=== PATIENT | female | born 1990 | race Caucasian/White ===

== ENCOUNTER → 2024-01-09 | Outpatient (CLI) | payer OTHER, SELFPAY ==
[2024-01-09 15:40] LABS: Estradiol 30.6 pg/mL; Follicle Stimulating Hormone 4.9 mIU/mL; Prolactin 6.8 ng/mL
[2024-01-13 07:07] LABS: HPV APTIMA, High Risk Negative (Negative)
[2024-01-13 18:07] LABS: Testosterone Free 1.8 pg/mL (0.0-4.2)
== END | disposition home or self-care (01) ==
PROVIDERS: Referring Provider Nurse Practitioner Women's Health; Visit Provider Nurse Practitioner Women's Health
DX: Z12.4 Encounter for screening for malignant neoplasm of cervix (principal); N91.5 Oligomenorrhea, unspecified
CPT/HCPCS: 82627; 82670; 83001; 84146; 84402; 87624; 88175; 82626; G0145

== ENCOUNTER → 2024-02-15 | Outpatient (CLI) | payer OTHER, SELFPAY ==
[2024-02-15 15:27] LABS: Absolute Lymphocyte Count 2.74 X10^3/uL (0.83-4.51); Absolute Neutrophil Count 5.2 X10^3/uL (2.0-7.7); Basophil# 0.02 X10^3/uL; Basophil% 0.2 % (0-1); Eosinophil# 0.09 X10^3/uL; Eosinophils% 1.1 % (0-5); Hematocrit 43.4 % (37-47); Hemoglobin 14.4 g/dL (12.0-15.0); Lymphocyte # 2.74 X10^3/ul (0.83-4.51); Lymphocyte % 32.1 % (19-41); Mean Corp Hgb Conc 33.2 g/dL (32-36); Mean Corpuscular Hgb 28.2 pg (27.0-32.0); Mean Corpuscular Volume 85.1 fL (81-99); Mean Platelet Vol. 11.1 fl (6.2-12.0); Monocyte# 0.44 X10^3/uL; Monocyte% 5.2 % (0-10); NRBC Flagged by Analyzer 0 % (0-5); Neutrophil # 5.22 X10^3/uL (2.7-7.7); Neutrophil % 61.2 % (47-70); Platelet Count 269 K/mm3 (150-450); RBC Distribution Width CV 12.9 % (11.6-14.6); White Blood Count 8.5 K/mm3 (4.4-11.0)
[2024-02-15 15:56] LABS: Vitamin D,25 Hydroxy 57.9 ng/mL
[2024-02-15 16:04] LABS: Hemoglobin A1c 5.4 % (3.8-5.6)
[2024-02-15 16:18] LABS: ALB/GLOB Ratio 0.9 RATIO (0.9-2.4); AST(SGOT) 18 U/L (15-37); Alanine Aminotransfer ALT/SGPT 37 U/L (13-56); Albumin, Serum 3.8 g/dL (3.2-5.0); Alkaline Phosphatase 73 U/L (45-117); Anion Gap 7 (5-15); BUN 11 mg/dL (7-18); BUN/Creat Ratio 14.1 RATIO (10-20); Calcium,Total 9.9 mg/dL (8.5-10.1); Chloride 101 mmol/L (98-107); Creatinine, Serum 0.78 mg/dL (0.55-1.02); EST Glomerular Filtration Rate 91 mL/min (>60); Est Glom Filt Rate - Afr Amer 110 mL/min (>60); Globulin 4.1 g/dL (2.2-4.2); Glucose 89 mg/dL (74-106); Potassium 3.8 mmol/L (3.5-5.1); Protein, Total 7.9 g/dL (6.4-8.2); Sodium Level 137 mmol/L (136-145); Thyroid Stim Hormone (TSH) 0.45 uIU/mL (0.358-3.74)
== END | disposition home or self-care (01) ==
LOC: MTLAB 12:40
PROVIDERS: PCP Family Medicine; Referring Provider Family Medicine; Visit Provider Family Medicine
DX: R00.2 Palpitations (principal); Z86.32 Personal history of gestational diabetes; E05.90 Thyrotoxicosis, unspecified without thyrotoxic crisis or storm
CPT/HCPCS: 36415; 80053; 82306; 83036; 84439; 84443; 85025

== ENCOUNTER → 2024-05-23 | Outpatient (CLI) | payer OTHER, SELFPAY ==
[2024-05-23 10:37] LABS: ALB/GLOB Ratio 0.8 RATIO (0.9-2.4); AST(SGOT) 20 U/L (15-37); Alanine Aminotransfer ALT/SGPT 32 U/L (13-56); Albumin, Serum 3.4 g/dL (3.2-5.0); Alkaline Phosphatase 89 U/L (45-117); Anion Gap 4 (5-15); BUN 14 mg/dL (7-18); BUN/Creat Ratio 16.5 RATIO (10-20); Calcium,Total 8.8 mg/dL (8.5-10.1); Chloride 105 mmol/L (98-107); Creatinine, Serum 0.85 mg/dL (0.55-1.02); EST Glomerular Filtration Rate 82 mL/min (>60); Est Glom Filt Rate - Afr Amer 99 mL/min (>60); Globulin 4.3 g/dL (2.2-4.2); Glucose 103 mg/dL (74-106); Potassium 3.9 mmol/L (3.5-5.1); Protein, Total 7.7 g/dL (6.4-8.2); Sodium Level 138 mmol/L (136-145); Thyroid Stim Hormone (TSH) 0.49 uIU/mL (0.358-3.74)
== END | disposition home or self-care (01) ==
LOC: PAVLAB 09:41
PROVIDERS: PCP Family Medicine; Referring Provider Nurse Practitioner Adult Health; Visit Provider Nurse Practitioner Adult Health
DX: E05.20 Thyrotoxicosis with toxic multinodular goiter without thyrotoxic crisis or storm (principal); E55.9 Vitamin D deficiency, unspecified
CPT/HCPCS: 36415; 80053; 84443

== ENCOUNTER → 2024-05-29 | Outpatient (CLI) | payer OTHER, SELFPAY ==
[2024-05-29 07:11] LABS: ALB/GLOB Ratio 0.9 RATIO (0.9-2.4); AST(SGOT) 16 U/L (15-37); Alanine Aminotransfer ALT/SGPT 30 U/L (13-56); Albumin, Serum 3.5 g/dL (3.2-5.0); Alkaline Phosphatase 78 U/L (45-117); Anion Gap 5 (5-15); BUN 13 mg/dL (7-18); BUN/Creat Ratio 15.9 RATIO (10-20); Chloride 104 mmol/L (98-107); Creatinine, Serum 0.82 mg/dL (0.55-1.02); EST Glomerular Filtration Rate 86 mL/min (>60); Est Glom Filt Rate - Afr Amer 104 mL/min (>60); Globulin 3.8 g/dL (2.2-4.2); Glucose 107 mg/dL (74-106); Potassium 3.5 mmol/L (3.5-5.1); Protein, Total 7.3 g/dL (6.4-8.2); Sodium Level 138 mmol/L (136-145)
== END | disposition home or self-care (01) ==
LOC: LAB 06:47
PROVIDERS: PCP Family Medicine; Referring Provider Physician Assistant Medical; Visit Provider Physician Assistant Medical
DX: E05.20 Thyrotoxicosis with toxic multinodular goiter without thyrotoxic crisis or storm (principal)
CPT/HCPCS: 36415; 80053

== ENCOUNTER → 2024-08-28 | Outpatient (CLI) | payer OTHER, SELFPAY ==
[2024-08-28 10:52] LABS: ALB/GLOB Ratio 0.9 RATIO (0.9-2.4); AST(SGOT) 18 U/L (15-37); Alanine Aminotransfer ALT/SGPT 32 U/L (13-56); Albumin, Serum 3.5 g/dL (3.2-5.0); Alkaline Phosphatase 93 U/L (45-117); Anion Gap 6 (5-15); BUN 10 mg/dL (7-18); BUN/Creat Ratio 13.4 RATIO (10-20); Calcium,Total 9.2 mg/dL (8.5-10.1); Chloride 104 mmol/L (98-107); Cholesterol 213 mg/dL (200); Creatinine, Serum 0.75 mg/dL (0.55-1.02); EST Glomerular Filtration Rate 95 mL/min (>60); Est Glom Filt Rate - Afr Amer 115 mL/min (>60); Glucose 100 mg/dL (74-106); High Density Lipoprotein 53 mg/dL; Potassium 3.7 mmol/L (3.5-5.1); Protein, Total 7.5 g/dL (6.4-8.2); Sodium Level 139 mmol/L (136-145); Thyroid Stim Hormone (TSH) 0.719 uIU/mL (0.358-3.740); Triglycerides 251 mg/dL; Very Low Density Lipoprotein 50 mg/dL (5-40)
== END | disposition home or self-care (01) ==
LOC: LAB 09:58
PROVIDERS: PCP Family Medicine; Referring Provider Internal Medicine Endocrinology, Diabetes & Metabolism; Visit Provider Internal Medicine Endocrinology, Diabetes & Metabolism
DX: E05.20 Thyrotoxicosis with toxic multinodular goiter without thyrotoxic crisis or storm (principal); E78.2 Mixed hyperlipidemia
CPT/HCPCS: 36415; 80053; 80061; 84443

== ENCOUNTER → 2024-08-29 | Outpatient (CLI) | payer OTHER, SELFPAY ==
--- NOTE | 2024-08-29 15:58 | RAD_ITS ---
STUDY: X-RAY CHEST REASON FOR EXAM: Female, 34 years old. COUGH TECHNIQUE: PA and lateral COMPARISON: None. FINDINGS: The lungs are clear and expanded. There is no demonstrated pleural abnormality. Normal size heart. Normal mediastinum and valeri. Normal visualized pulmonary arteries. Normal visualized aortic arch and descending thoracic aorta. Normal visualized thoracic spine. Normal visualized ribs, clavicles, and shoulders. There is no demonstrated abnormality of the visualized soft tissue structures of the upper abdomen. RAD/Chest PA and Lateral IMPRESSION: Normal x-ray examination of the chest. Electronically Signed: Shine Hernandez MD at 16:21 EDT ,
== END | disposition home or self-care (01) ==
LOC: MTRAD 15:56
PROVIDERS: PCP Family Medicine; Referring Provider Nurse Practitioner Family; Visit Provider Nurse Practitioner Family
DX: R05.1 Acute cough (principal); M54.9 Dorsalgia, unspecified
CPT/HCPCS: 71046

== ENCOUNTER → 2024-12-25 | Outpatient (CLI) | payer OTHER, SELFPAY ==
[2024-12-25 08:00] LABS: ALB/GLOB Ratio 1.4 RATIO (0.9-2.4); AST(SGOT) 24 U/L (<=31); Alanine Aminotransfer ALT/SGPT 28 U/L (<=34); Albumin, Serum 4.2 g/dL (3.5-5.0); Alkaline Phosphatase 86 U/L (35-104); Anion Gap 11 (5-15); BUN 10 mg/dL (4-19); BUN/Creat Ratio 14.1 RATIO (10-20); Calcium 9.3 mg/dL (7.6-11.0); Carbon Dioxide 25.5 mmol/L (22.0-29.0); Chloride 101 mmol/L (96-108); Creatinine, Serum 0.7 mg/dL (0.6-1.0); EST Glomerular Filtration Rate 114 (>60); Glucose 102 mg/dL (70-99); Potassium 3.8 mmol/L (3.3-5.1); Protein, Total 7.2 g/dL (5.9-8.4); Sodium Level 137 mmol/L (133-145); Total Bilirubin 0.24 mg/dL (0.00-1.30); Vitamin D,25 Hydroxy 60.2 ng/mL (30-100)
== END | disposition home or self-care (01) ==
LOC: LAB 06:52
PROVIDERS: PCP Family Medicine; Referring Provider Internal Medicine Endocrinology, Diabetes & Metabolism; Visit Provider Internal Medicine Endocrinology, Diabetes & Metabolism
DX: E05.20 Thyrotoxicosis with toxic multinodular goiter without thyrotoxic crisis or storm (principal); E55.9 Vitamin D deficiency, unspecified
CPT/HCPCS: 36415; 80053; 82306; 84443

== ENCOUNTER → 2025-03-25 | Outpatient (CLI) | payer OTHER, SELFPAY ==
[2025-03-25 13:20] LABS: ALB/GLOB Ratio 1.3 RATIO (0.9-2.4); AST(SGOT) 22 U/L (<=31); Alanine Aminotransfer ALT/SGPT 24 U/L (<=34); Albumin, Serum 4.4 g/dL (3.5-5.0); Alkaline Phosphatase 98 U/L (35-104); Anion Gap 11 (5-15); BUN 13 mg/dL (4-19); BUN/Creat Ratio 19.1 RATIO (10-20); Calcium,Total 9.6 mg/dL (7.6-11.0); Carbon Dioxide 25.9 mmol/L (21.0-32.0); Chloride 101 mmol/L (98-108); Creatinine, Serum 0.69 mg/dL (0.70-1.20); EST Glomerular Filtration Rate 117 (>60); Globulin 3.3 g/dL (2.2-4.2); Glucose 98 mg/dL (70-99); Protein, Total 7.6 g/dL (5.9-8.4); Sodium Level 138 mmol/L (133-145); Thyroid Stim Hormone (TSH) 0.582 uIU/mL (0.300-4.200); Total Bilirubin 0.34 mg/dL (0.00-1.30)
== END | disposition home or self-care (01) ==
LOC: LAB 10:27
PROVIDERS: PCP Family Medicine; Referring Provider Internal Medicine Endocrinology, Diabetes & Metabolism; Visit Provider Internal Medicine Endocrinology, Diabetes & Metabolism
DX: E05.20 Thyrotoxicosis with toxic multinodular goiter without thyrotoxic crisis or storm (principal)
CPT/HCPCS: 36415; 80053; 84443

== ENCOUNTER → 2025-05-07 | Outpatient (CLI) | payer OTHER, SELFPAY ==
[2025-05-07 12:23] LABS: AST(SGOT) 23 U/L (<=31); Alanine Aminotransfer ALT/SGPT 27 U/L (<=34); Albumin, Serum 4.3 g/dL (3.5-5.0); Alkaline Phosphatase 93 U/L (35-104); Anion Gap 11 (5-15); BUN 14 mg/dL (4-19); BUN/Creat Ratio 17.2 RATIO (10-20); Calcium,Total 9.6 mg/dL (7.6-11.0); Carbon Dioxide 26.5 mmol/L (21.0-32.0); Chloride 101 mmol/L (98-108); Free T3 3.1 pg/mL (2.18-3.98); Globulin 3.2 g/dL (2.2-4.2); Glucose 91 mg/dL (70-99); Potassium 3.9 mmol/L (3.3-5.1)
--- OUTSIDE RECORDS SUMMARY | 2025-05-07 19:52 | XMS RPT_ITS | CCD ---
Author Organization [facility] Care Team Providers Care Elephant Tamer Name Role Phone Unavailable Primary Care Provider Unavailadela Darden MANAGED CARE MANAGER, MANAGED CARE MANAGERMario Flores Attending Provider Monae TIWARI, Patience Primary Care Provider Ashleigh ROSE, Dr. Farnsworth Attending Provider Dr. Javad Sotelo DO Referring Provider Monae, Chalon Primary Care Unavailable Bear MANAGED CARE MANAGER, Patti Attending Unavailable Bear RODRIGUEZ, Patti Referring Unavailable Terra Myers Attending Unavailadela Licona, Chalon Primary Care Unavailable Monae, Chalon Primary Care Unavailable Javad Sotelo Attending Unavailable Javad Sotelo Referring Unavailable Monae, Chalon Primary Care Unavailable Javad Sotelo Attending Unavailable Javad Sotelo Referring Unavailable Zayda Ramirez Referring Unavailable Zayda Ramirez Attending Unavailable Monae, Chalon Primary Care Unavailable Monae, Chalon Primary Care Unavailable Javad Sotelo Attending Unavailable Javad Sotelo Referring Unavailable Monae, Chalon Primary Care Unavailable WU RIVERA Referring Unavailable WU RIVERA Attending Unavailable Allergies Allergy Classification Reported Allergen(s) Allergy Type Date of Onset Reaction(s) Facility (1 source) Amoxicillin / Clavulanate Drug Allergy 03-19-2019 [facility] Medications Current Medications Medication Drug Class(es) Dates Sig (Normalized) Sig (Original) medroxyPROGESTERone acetate 10 mg oral tablet (4 sources) Progestin Start: 4 Medroxyprogesterone 10 mg tablet Active 10 mg PO daily 08 07January 09, 2024 12:00am Take daily X 10 days to induce menses. Repeat every 3 months if no spontaneous menses methIMAzole 5 mg oral tablet (4 sources) Thyroid Hormone Synthesis Inhibitor Start: take 2.5 mg by mouth four times weekly Methimazole 5 mg tablet Active 2.5 mg PO 4 times per week January 09, 2024 12:00am Start: 01-09-2024 take 2.5 mg by mouth four times weekly Methimazole Active 2.5 MG PO 4 times per week January 09, 2024 12:00am Problems Active Problems Problem Classification Problem Date Documented Date Episodic/Chronic Menstrual disorders (6 sources) Oligomenorrhea; Translations: [Oligomenorrhea, unspecified] 01-09-2024 Chronic Comment on above: labs. 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 Unclassified (1 source) Patient encounter status; Translations: [Encounter for induction of labor] Onset: 03-19-2019 03-19-2019 Unclassified (1 source) Acute cough; Translations: [Acute cough] Onset: 09-19-2024 Past or Other Problems Problem Classification Problem Date Documented Da te Episodic/Chronic Diabetes or abnormal glucose tolerance complicating ; childbirth; or the puerperium (1 source) Gestational diabetes mellitus complicating ; Translations: [Gestational diabetes mellitus (GDM) affecting second ] Onset: 03-19-2019 03-19-2019 Episodic Residual codes; unclassified (1 source) Gestation period, 40 weeks; Translations: [40 weeks gestation of ] Onset: 03-19-2019 03-19-2019 Episodic Results Test Name Value Interpretation Reference Range Facility Anion gap in Serum or Plasma Ordered By: Javad Sotelo on 03-25-2025 Anion gap [Moles/Vol] 11 mmol/L 5-15 [facility] BUN/creatinine ratioOrdered By: Javad Sotelo on 03-25-2025 Urea nitrogen/Creatinine [Mass ratio] 19.1 mg/mg 10-20 [facility] Bilirubin, totalOrdered By: Javad Sotelo on 03-25-2025 Bilirubin [Mass/Vol] 0.34 mg/dL 0.00-1.30 [facility] Carbon dioxide, total [Moles /volume] in Central venous bloodOrdered By: Javad Sotelo on 03-25-2025 CO2 [Moles/Vol] 25.9 mmol/L 21.0-32.0 [facility] Chloride assayOrdered By: Stew Sotelo on 03-25-2025 Chloride [Moles/Vol] 101 mmol/L 98-108 [facility] Comprehensive Metabolic Prof ilon 03-25-2025 Albumin [Mass/Vol] 4.4 g/dL Normal 3.5-5.0 [facility] Comment on above: Performed By: #### L 500.4050, L501.9520 #### [facility] [address] [place], [address] Albumin/Globulin [Mass ratio] 1.3 {ratio} Normal 0.9-2.4 [facility] Comment on above: Performed By: #### L 500.4050, L501.9520 #### [facility] [address] [place], [address] ALK PHOS 98 U/L Normal 35-104 [facility] Comment on above: Performed By: #### L 500.4050, L501.9520 #### [facility] [address] [place], [address] ALT [Catalytic activity/Vol] 24 U/L Normal <=34 [facility] Comment on above: Performed By: #### L 500.4050, [id number] #### [facility] [address] [place], [address] AST [Catalytic activity/Vol] 22 U/L Normal <=31 [facility] Comment on above: Performed By: #### L 500.4050, [id number] #### [facility] [address] [place], [address] Bilirubin [Mass/Vol] 0.34 mg/dL Normal 0.00-1.30 [facility] Comment on above: Performed By: #### L 500.4050, [id number] #### [facility] [address] [place], [address] BUN/CRE 19.1 RATIO Normal 10-20 [facility] Comment on above: Performed By: #### L 500.4050, [id number] #### [facility] [address] [place], [address] Calcium [Mass/Vol] 9.6 mg/dL Normal 7.6-11.0 [facility] Comment on above: Performed By: #### L 500.4050, [id number] #### [facility] [address] [place], [address] Chloride [Moles/Vol] 101 mmol/L Normal 98-108 [facility] Comment on above: Performed By: #### L 500.4050, [id number] #### [facility] [address] [place], [address] CO2 [Moles/Vol] 25.9 mmol/L Normal 21.0-32.0 [facility] Comment on above: Performed By: #### L 500.4050, [id number] #### [facility] [address] [place], [address] Creatinine [Mass/Vol] 0.69 mg/dL Low 0.70-1.20 [facility] Comment on above: Performed By: #### L 500.4050, [id number] #### [facility] [address] [place], [address] GAP 11 Normal 5-15 [facility] Comment on above: Performed By: #### L 500.4050, [id number] #### [facility] [address] [place], [address] GFR/1.73 sq M.predicted among non-blacks MDRD (S/P/Bld) [Vol rate/Area] 117 mL/min/{1.73_m2} Normal >60 [facility] Comment on above: Result Comment: mL/m in/1.73m2 CKD-EPI Creatinine Equation (2020) Performed By: #### L 500.4050, L501.9520 #### [facility] [address] [place], [address] Globulin (S) [Mass/Vol] 3.3 g/dL Normal 2.2-4.2 [facility] Comment on above: Performed By: #### L 500.4050, [id number] #### [facility] [address] [place], [address] Glucose [Mass/Vol] 98 mg/dL Normal 70-99 [facility] Comment on above: Performed By: #### L 500.4050, [id number] #### [facility] [address] [place], [address] Potassium [Moles/Vol] 4.0 mmol/L Normal 3.3-5.1 [facility] Comment on above: Performed By: #### L 500.4050, [id number] #### [facility] [address] [place], [address] Sodium [Moles/Vol] 138 mmol/L Normal 133-145 [facility] Comment on above: Performed By: #### L 500.4050, [id number] #### [facility] [address] [place], [address] T PROT 7.6 g/dL Normal 5.9-8.4 [facility] Comment on above: Performed By: #### L 500.4050, [id number] #### [facility] [address] [place], [place], [address] Urea nitrogen [Mass/Vol] 13 mg/dL Normal 4-19 [facility] Comment on above: Performed By: #### L 500.4050, [id number] #### [facility] [address] [place], [place], [address] Glomerular filtration rate ( GFR) estimation/1.73 sq m using serum, plasma, or whole bOrdered By: Javad Sotelo on 03-25-2025 GFR/1.73 sq M.predicted among non-blacks MDRD (S/P/Bld) [Vol rate/Area] 117 mL/min/{1.73_m2} >60 [facility] Comment on above: mL/min/1.73m2 CKD-EP I Creatinine Equation (2020) Laboratory - Chemistry and C hemistry - challengeOrdered By: Javad Sotelo on 03-25-2025 AST [Catalytic activity/Vol] 22 U/L <32 [facility] Potassium measurement (mass/ volume)Ordered By: Javad Sotelo on 03-25-2025 Potassium (Unsp spec) [Mass/Vol] 4.0 mmol/L 3.3-5.1 [facility] Serum creatinine measurement (mass/volume)Ordered By: Javad Sotelo on 03-25-2025 Creatinine [Mass/Vol] 0.69 mg/dL Low 0.70-1.20 [facility] Serum globulin measurementOr dered By: Javad Sotelo on 03-25-2025 Globulin (S) [Mass/Vol] 3.3 g/dL 2.2-4.2 [facility] Serum glucose measurement (m ass/volume)Ordered By: Javad Sotelo on 03-25-2025 Glucose [Mass/Vol] 98 mg/dL 70-99 [facility] Serum or plasma alanine warner otransferase (ALT) measurementOrdered By: Javad Sotelo on 03-25-2025 ALT [Catalytic activity/Vol] 24 U/L <35 [facility] Serum or plasma albumin david urement (mass/volume)Ordered By: Javad Sotelo on 03-25-2025 Albumin [Mass/Vol] 4.4 g/dL 3.5-5.0 [facility] Serum or plasma albumin/glob ulin mass ratioOrdered By: Javad Sotelo on 03-25-2025 Albumin/Globulin [Mass ratio] 1.3 {ratio} 0.9-2.4 [facility] Serum or plasma alkaline nancy sphatase measurementOrdered By: Javad Sotelo on 03-25-2025 ALP [Catalytic activity/Vol] 98 U/L 35-104 [facility] Serum or plasma calcium david urement (mass/volume)Ordered By: Javad Sotelo on 03-25-2025 Calcium [Mass/Vol] 9.6 mg/dL 7.6-11.0 [facility] Serum or plasma urea nitroge n measurement (mass/volume)Ordered By: Javad Sotelo on 03-25-2025 Urea nitrogen [Mass/Vol] 13 mg/dL 4-19 [facility] Sodium levelOrdered By: Breann Sotelo on 03-25-2025 Sodium [Moles/Vol] 138 mmol/L 133-145 [facility] TSH DL <= 0.005 mIU/L QnOrde red By: Javad Sotelo on 03-25-2025 TSH Qn 0.582 uIU/mL 0.300-4.200 [facility] Thyroid Stim Hormone (TSH)on 03-25-2025 TSH 0.582 uIU/mL Normal 0.300-4.200 [facility] Comment on above: Performed By: #### L 500.4050, L501.9520 #### [facility] [address] [place], [place] [address], [address] Total proteinOrdered By: Deny Sotelo on 03-25-2025 Protein [Mass/Vol] 7.6 g/dL 5.9-8.4 [facility] BUN/creatinine ratioOrdered By: Javad Sotelo on 12-25-2024 Urea nitrogen/Creatinine [Mass ratio] 14.1 mg/mg 10-20 [facility] Bilirubin, totalOrdered By: Javad Sotelo on 12-25-2024 Bilirubin [Mass/Vol] 0.24 mg/dL Normal 0.00-1.30 [facility] Comment on above: Performed By: #### L 500.4050, L501.9520, L506.1001 #### [facility] [address], [address] Carbon dioxide measurementOr dered By: Javad Sotelo on 12-25-2024 CO2 [Moles/Vol] 25.5 mmol/L Normal 22.0-29.0 [facility] Comment on above: Performed By: #### L 500.4050, L501.9520, L506.1001 #### [facility] [address] [place], [address] Chloride measurementOrdered By: Javad Sotelo on 12-25-2024 Chloride [Moles/Vol] 101 mmol/L Normal 96-108 [facility] Comment on above: Performed By: #### L 500.4050, L501.9520, L506.1001 #### [facility] [address] [place], [address] Comprehensive Metabolic Prof ilon 12-25-2024 ALK PHOS 86 U/L Normal 35-104 [facility] Comment on above: Performed By: #### L 500.4050, L501.9520, L506.1001 #### [facility] [address] [place], [address] BUN/CRE 14.1 RATIO Normal 10-20 [facility] Comment on above: Performed By: #### L 500.4050, L501.9520, L506.1001 #### [facility] [address] [place], [address] T PROT 7.2 g/dL Normal 5.9-8.4 [facility] Comment on above: Performed By: #### L 500.4050, L501.9520, L506.1001 #### [facility] [address] [place], [address] Comprehensive Metabolic Prof ilOrdered By: Javad Sotelo on 12-25-2024 AST [Catalytic activity/Vol] 24 U/L Normal <=31 [facility] Comment on above: Performed By: #### L 500.4050, L501.9520, L506.1001 #### [facility] [address] [place], [address] GFR/1.73 sq M.predicted ronal g non-blacks MDRD (S/P/Bld) [Vol rate/Area]Ordered By: Javad Sotelo on 12-25-2024 Estimated GFR (MDRD) Non-Af Amer 114 >60 [facility] Comment on above: mL/min/1.73m2 CKD-EP I Creatinine Equation (2020) Glomerular filtration rate ( GFR) estimation/1.73 sq m using serum, plasma, or whole bOrdered By: Javad Sotelo on 12-25-2024 GFR/1.73 sq M.predicted among non-blacks MDRD (S/P/Bld) [Vol rate/Area] 114 mL/min/{1.73_m2} Normal >60 [facility] Comment on above: mL/min/1.73m2 CKD-EP I Creatinine Equation (2020) Result Comment: mL/m in/1.73m2 CKD-EPI Creatinine Equation (2020) Performed By: #### L 500.4050, L501.9520, L506.1001 #### [facility] [address] [place], [address] L506.1001on 12-25-2024 Vitamin D 25-OH 60.2 ng/mL Normal 30-100 [facility] Comment on above: Result Comment: Mira min D Status Deficiency: <20 ng/mL (50nmol/L) Insufficiency: 20-30 ng/mL (50-75 nmol/L) Sufficiency: 30-100 ng/mL (75-250 nmol/L) Toxicity: >100 ng/mL (>250 nmol/L) Performed By: #### L 500.4050, L501.9520 #### [facility] [address] [place], [address] No Panel InformationOrdered By: Javad Sotelo on 12-25-2024 Vitamin D 25-Hydroxy 60.2 ng/mL 30-100 [facility] Comment on above: Vitamin D StatusDefi ciency: <20 ng/mL (50nmol/L)Insufficiency: 20-30 ng/mL (50-75 nmol/L)Sufficiency: 30-100 ng/mL (75-250 nmol/L)Toxicity: >100 ng/mL (>250 nmol/L) Serum globulin measurementOr dered By: Javad Sotelo on 12-25-2024 Globulin (S) [Mass/Vol] 3.0 g/dL Normal 2.2-4.2 [facility] Comment on above: Performed By: #### L 500.4050, L501.9520, L506.1001 #### [facility] [address] [place], [address] Serum glucose measurement (m ass/volume)Ordered By: Javad Sotelo on 12-25-2024 Glucose [Mass/Vol] 102 mg/dL High 70-99 [facility] Comment on above: Performed By: #### L 500.4050, L501.9520, L506.1001 #### [facility] [address] [place], [address] Serum or plasma alanine warner otransferase (ALT) measurementOrdered By: Javad Sotelo on 12-25-2024 ALT [Catalytic activity/Vol] 28 U/L Normal <=34 [facility] Comment on above: Performed By: #### L 500.4050, L501.9520, L506.1001 #### [facility] [address] [place], [address] Serum or plasma albumin david urement (mass/volume)Ordered By: Javad Sotelo on 12-25-2024 Albumin [Mass/Vol] 4.2 g/dL Normal 3.5-5.0 [facility] Comment on above: Performed By: #### L 500.4050, L501.9520, L506.1001 #### [facility] [address] [place], [address] Serum or plasma albumin/glob ulin mass ratioOrdered By: Javad Ashleigh on 12-25-2024 Albumin/Globulin [Mass ratio] 1.4 {ratio} Normal 0.9-2.4 [facility] Comment on above: Performed By: #### L 500.4050, L501.9520, L506.1001 #### [facility] [address] [place], [address] Serum or plasma alkaline nancy sphatase measurementOrdered By: Javad Sotelo on 12-25-2024 ALP [Catalytic activity/Vol] 86 U/L 35-104 [facility] Serum or plasma anion gap de termination (moles/volume)Ordered By: Javadalonso Sotelo on 12-25-2024 Anion gap [Moles/Vol] 11 mmol/L Normal 5-15 [facility] Comment on above: Performed By: #### L 500.4050, L501.9520, L506.1001 #### [facility] [address] [place], [address] Serum or plasma calcium david urement (mass/volume)Ordered By: Javad Sotelo on 12-25-2024 Calcium [Mass/Vol] 9.3 mg/dL Normal 7.6-11.0 [facility] Comment on above: Performed By: #### L 500.4050, L501.9520, L506.1001 #### [facility] [address] [place], [address] Serum or plasma creatinine m easurement (moles/volume)Ordered By: Javad Sotelo on 12-25-2024 Creatinine [Mass/Vol] 0.7 mg/dL Normal 0.6-1.0 [facility] Comment on above: Performed By: #### L 500.4050, L501.9520, L506.1001 #### [facility] [address] [place], [address] Creatinine [Moles/Vol] 0.7 mg/dL 0.6-1.0 [facility] Serum or plasma potassium me asurementOrdered By: Javad Sotelo on 12-25-2024 Potassium [Moles/Vol] 3.8 mmol/L Normal 3.3-5.1 [facility] Comment on above: Performed By: #### L 500.4050, L501.9520, L506.1001 #### [facility] [address] [place], [address] Serum or plasma sodium measu rement (moles/volume)Ordered By: Javad Sotelo on 12-25-2024 Sodium [Moles/Vol] 137 mmol/L Normal 133-145 [facility] Comment on above: Performed By: #### L 500.4050, L501.9520, L506.1001 #### [facility] [address] [place], [address] Serum or plasma urea nitroge n measurement (mass/volume)Ordered By: Javad Sotelo on 12-25-2024 Urea nitrogen [Mass/Vol] 10 mg/dL Normal 4-19 [facility] Comment on above: Performed By: #### L 500.4050, L501.9520, L506.1001 #### [facility] [address] [place], [address] TSH DL <= 0.005 mIU/L QnOrde red By: Javad Sotelo on 12-25-2024 Thyroid Stimulating Hormone (TSH) 0.810 uIU/mL 0.300-4.200 [facility] TSH Qn 0.810 uIU/mL 0.300-4.200 [facility] Thyroid Stim Hormone (TSH)on 12-25-2024 TSH 0.810 uIU/mL Normal 0.300-4.200 [facility] Comment on above: Performed By: #### L 500.4050, L501.9520 #### [facility] [address] [place], [place], [address] Total proteinOrdered By: Deny in Ashleigh on 12-25-2024 Protein [Mass/Vol] 7.2 g/dL 5.9-8.4 [facility] Chest PA and Lateralon 08-29 Chest PA and Lateral [facility] [address] [place], [place] [address] Chest PA and Lateral MR#: [id number] Acct: [id number] Name: LORE GARDNER Rep #: [id number] : 1990 F 34 From: Shine Hernandez MD PCP: Dr. Patience Licona MD Status: [facility] CLI Study: Chest PA and Lateral Date of Exam: 08/29/24 Exam# [id number] Ordering Dr: Zayda Ramirez MANAGED CARE MANAGER- C [id number] STUDY: X-RAY CHEST REASON FOR EXAM: Female, 34 years old. COUGH TECHNIQUE: PA and lateral COMPARISON: None. FINDINGS: The lungs are clear and expanded. There is no demonstrated pleural abnormality. Normal size heart. Normal mediastinum and valeri. Normal visualized pulmonary arteries. Normal visualized aortic arch and descending thoracic aorta. Normal visualized thoracic spine. Normal visualized ribs, clavicles, and shoulders. There is no demonstrated abnormality of the visualized soft tissue structures of the upper abdomen. RAD/Chest PA and Lateral IMPRESSION: Normal x-ray examination of the chest. Electronically Signed: Shine Hernandez MD at 16:21 EDT , CC: LISA Ramirez; Dr. Patience Licona MD Mechanical Integrity Specialist: Signed Normal [facility] Comprehensive Metabolic Prof ilon 08-28-2024 Albumin [Mass/Vol] 3.5 g/dL Normal 3.2-5.0 [facility] Comment on above: Performed By: #### L 500.4100, L500.4050, L501.9520 #### [facility] [address] [place], [address] Albumin/Globulin [Mass ratio] 0.9 {ratio} Normal 0.9-2.4 [facility] Comment on above: Performed By: #### L 500.4100, L500.4050, L501.9520 #### [facility] [address] [place], [address] ALK P 93 U/L Normal 45-117 [facility] Comment on above: Performed By: #### L 500.4100, L500.4050, L501.9520 #### [facility] [address] [place], [address] ALT [Catalytic activity/Vol] 32 U/L Normal 13-56 [facility] Comment on above: Performed By: #### L 500.4100, L500.4050, L501.9520 #### [facility] [address] [place], [address] AST [Catalytic activity/Vol] 18 U/L Normal 15-37 [facility] Comment on above: Performed By: #### L 500.4100, L500.4050, L501.9520 #### [facility] [address] [place], [address] Bilirubin [Mass/Vol] 0.40 mg/dL Normal 0.20-1.00 [facility] Comment on above: Result Comment: For patients on eltrombopag therapy, use of Dimension Dresher TBIL is not recommended. Performed By: #### L 500.4100, L500.4050, L501.9520 #### [facility] [address] [place], [address] BUN/CRE 13.4 RATIO Normal 10-20 [facility] Comment on above: Performed By: #### L 500.4100, L500.4050, L501.9520 #### [facility] [address] [place], [address] CA,Total 9.2 mg/dL Normal 8.5-10.1 [facility] Comment on above: Performed By: #### L 500.4100, L500.4050, L501.9520 #### [facility] [address] [place], [address] Chloride [Moles/Vol] 104 mmol/L Normal 98-107 [facility] Comment on above: Performed By: #### L 500.4100, L500.4050, L501.9520 #### [facility] [address] [place], [address] CO2 [Moles/Vol] 29.0 mmol/L Normal 21.0-32.0 [facility] Comment on above: Performed By: #### L 500.4100, L500.4050, L501.9520 #### [facility] [address] [place], [address] Creatinine [Mass/Vol] 0.75 mg/dL Normal 0.55-1.02 [facility] Comment on above: Result Comment: The validity of the calculated GFR GFRAA in patients over 70 years has not been determined. Clinical correlation is essential. Performed By: #### L 500.4100, L500.4050, L501.9520 #### [facility] [address] [place], [address] EST GFR - AA 115 mL/min Normal >60 [facility] Comment on above: Result Comment: Afri can Greek GFR Calc Performed By: #### L 500.4100, L500.4050, L501.9520 #### [facility] [address] [place], [address] GAP 6 Normal 5-15 [facility] Comment on above: Performed By: #### L 500.4100, L500.4050, L501.9520 #### [facility] [address] [place], [address] GFR/1.73 sq M.predicted among non-blacks MDRD (S/P/Bld) [Vol rate/Area] 95 mL/min/{1.73_m2} Normal >60 [facility] Comment on above: Result Comment: Non- GFR Calc Performed By: #### L 500.4100, L500.4050, L501.9520 #### [facility] [address] [place], [address] Globulin (S) [Mass/Vol] 4.0 g/dL Normal 2.2-4.2 [facility] Comment on above: Performed By: #### L 500.4100, L500.4050, L501.9520 #### [facility] [address] [place], [address] Glucose [Mass/Vol] 100 mg/dL Normal 74-106 [facility] Comment on above: Result Comment: Fast ing Glucose result from 100 to 125 mg/dL suggests IMPAIRED HOMEOSTASIS per A.D.A. criteria. Performed By: #### L 500.4100, L500.4050, L501.9520 #### [facility] [address] [place], [address] Potassium [Moles/Vol] 3.7 mmol/L Normal 3.5-5.1 [facility] Comment on above: Performed By: #### L 500.4100, L500.4050, L501.9520 #### [facility] [address] [place], [address] Sodium [Moles/Vol] 139 mmol/L Normal 136-145 [facility] Comment on above: Performed By: #### L 500.4100, L500.4050, [id number] #### [facility] [address] [place], [address] T PROT 7.5 g/dL Normal 6.4-8.2 [facility] Comment on above: Performed By: #### L 500.4100, [id number], [id number] #### [facility] [address] [place], [address] Urea nitrogen [Mass/Vol] 10 mg/dL Normal 7-18 [facility] Comment on above: Performed By: #### L 500.4100, L500.4050, [id number] #### [facility] [address] [place], [address] Lipid Profileon 08-28-2024 Cholesterol [Mass/Vol] 213 mg/dL High 200 [facility] Comment on above: Result Comment: <200 mg/dL Desirable 200-240 mg/dL Borderline >240 mg/dL High Risk Performed By: #### L 500.4100, L500.4050, [id number] #### [facility] [address] [place], [address] Cholesterol in HDL [Mass/Vol] 53 mg/dL Normal [facility] Comment on above: Result Comment: The drugs N-Acetylcysteine and Metamizole may falsely depress this assay. Reference Range HDL <40 mg/dL Low HDL Cholesterol HDL >or= 60 mg/dL High HDL Cholesterol Performed By: #### L 500.4100, L500.4050, [id number] #### [facility] [address] [place], [address] Cholesterol in LDL [Mass/Vol] 110 mg/dL Normal 0-130 [facility] Comment on above: Performed By: #### L 500.4100, [id number], [id number] #### [facility] [address] [place], [address] Cholesterol in VLDL [Mass/Vol] 50 mg/dL High 5-40 [facility] Comment on above: Performed By: #### L 500.4100, L500.4050, [id number] #### [facility] [address] [place], [address] Triglyceride [Mass/Vol] 251 mg/dL High [facility] Comment on above: Result Comment: The drugs N-Acetylcysteine and Metamizole may falsely depress this assay. Serum Triglycerides Reference Interval Normal <150 mg/dL Borderline high 150 - 199 mg/dL High 200 - 499 mg/dL Very High > or = 500 mg/dL Performed By: #### L 500.4100, L500.4050, [id number] #### [facility] [address] [place], [address] Thyroid Stim Hormone (TSH)on 08-28-2024 TSH 0.719 uIU/mL Normal 0.358-3.740 [facility] Comment on above: Performed By: #### L 500.4100, L500.4050, [id number] #### [facility] [address] [place], [address] Comprehensive Metabolic Prof ilon 05-29-2024 Albumin [Mass/Vol] 3.5 g/dL Normal 3.2-5.0 [facility] Comment on above: Performed By: #### L 500.4050 #### [facility] [address] [place], [address] Albumin/Globulin [Mass ratio] 0.9 {ratio} Normal 0.9-2.4 [facility] Comment on above: Performed By: #### L 500.4050 #### [facility] [address] [place], [address] ALK P 78 U/L Normal 45-117 [facility] Comment on above: Performed By: #### L 500.4050 #### [facility] [address] [place], [address] ALT [Catalytic activity/Vol] 30 U/L Normal 13-56 [facility] Comment on above: Performed By: #### L 500.4050 #### [facility] [address] [place], [address] AST [Catalytic activity/Vol] 16 U/L Normal 15-37 [facility] Comment on above: Performed By: #### L 500.4050 #### [facility] [address] [place], [address] Bilirubin [Mass/Vol] 0.20 mg/dL Normal 0.20-1.00 [facility] Comment on above: Result Comment: For patients on eltrombopag therapy, use of Dimension Dresher TBIL is not recommended. Performed By: #### L 500.4050 #### [facility] [address] [place], [address] BUN/CRE 15.9 RATIO Normal 10-20 [facility] Comment on above: Performed By: #### L [id number] #### [facility] [address] [place], [address] CA,Total 9.0 mg/dL Normal 8.5-10.1 [facility] Comment on above: Performed By: #### L 500.4050 #### [facility] [address] [place], [address] Chloride [Moles/Vol] 104 mmol/L Normal 98-107 [facility] Comment on above: Performed By: #### L 500.4050 #### [facility] [address] [place], [address] CO2 [Moles/Vol] 29.0 mmol/L Normal 21.0-32.0 [facility] Comment on above: Performed By: #### L 500.4050 #### [facility] [address] [place], [address] Creatinine [Mass/Vol] 0.82 mg/dL Normal 0.55-1.02 [facility] Comment on above: Result Comment: The validity of the calculated GFR GFRAA in patients over 70 years has not been determined. Clinical correlation is essential. Performed By: #### L 500.4050 #### [facility] [address] [place], [address] EST GFR - AA 104 mL/min Normal >60 [facility] Comment on above: Result Comment: Afri can Greek GFR Calc Performed By: #### L 500.4050 #### [facility] [address] [place], [address] GAP 5 Normal 5-15 [facility] Comment on above: Performed By: #### L 500.4050 #### [facility] [address] [place], [address] GFR/1.73 sq M.predicted among non-blacks MDRD (S/P/Bld) [Vol rate/Area] 86 mL/min/{1.73_m2} Normal >60 [facility] Comment on above: Result Comment: Non- GFR Calc Performed By: #### L 500.4050 #### [facility] [address] [place], [address] Globulin (S) [Mass/Vol] 3.8 g/dL Normal 2.2-4.2 [facility] Comment on above: Performed By: #### L 500.4050 #### [facility] [address] [place], [address] Glucose [Mass/Vol] 107 mg/dL High 74-106 [facility] Comment on above: Result Comment: Fast ing Glucose result from 100 to 125 mg/dL suggests IMPAIRED HOMEOSTASIS per A.D.A. criteria. Performed By: #### L 500.4050 #### [facility] [address] [place], [address] Potassium [Moles/Vol] 3.5 mmol/L Normal 3.5-5.1 [facility] Comment on above: Performed By: #### L [id number] #### [facility] [address] [place], [address] Sodium [Moles/Vol] 138 mmol/L Normal 136-145 [facility] Comment on above: Performed By: #### L 500.4050 #### [facility] [address] [place], [address] T PROT 7.3 g/dL Normal 6.4-8.2 [facility] Comment on above: Performed By: #### L 500.4050 #### [facility] [address] [place], [address] Urea nitrogen [Mass/Vol] 13 mg/dL Normal 7-18 [facility] Comment on above: Performed By: #### L 500.4050 #### [facility] [address] [place], [address] Comprehensive Metabolic Prof ilon 05-23-2024 Albumin [Mass/Vol] 3.4 g/dL Normal 3.2-5.0 [facility] Comment on above: Performed By: #### L 501.9520, L500.4050 #### [facility] [address] [place], [address] Albumin/Globulin [Mass ratio] 0.8 {ratio} Low 0.9-2.4 [facility] Comment on above: Performed By: #### L 501.9520, L500.4050 #### [facility] [address] [place], [address] ALK P 89 U/L Normal 45-117 [facility] Comment on above: Performed By: #### L 501.9520, L500.4050 #### [facility] [address] [place], [address] ALT [Catalytic activity/Vol] 32 U/L Normal 13-56 [facility] Comment on above: Performed By: #### L 501.9520, L500.4050 #### [facility] [address] [place], [address] AST [Catalytic activity/Vol] 20 U/L Normal 15-37 [facility] Comment on above: Performed By: #### L 501.9520, L500.4050 #### [facility] [address] [place], [address] Bilirubin [Mass/Vol] 0.40 mg/dL Normal 0.20-1.00 [facility] Comment on above: Result Comment: For patients on eltrombopag therapy, use of Dimension Dresher TBIL is not recommended. Performed By: #### L 501.9520, L500.4050 #### [facility] [address] [place], [address] BUN/CRE 16.5 RATIO Normal 10-20 [facility] Comment on above: Performed By: #### L [id number], L500.4050 #### [facility] [address] [place], [address] CA,Total 8.8 mg/dL Normal 8.5-10.1 [facility] Comment on above: Performed By: #### L [id number], L500.4050 #### [facility] [address] [place], [address] Chloride [Moles/Vol] 105 mmol/L Normal 98-107 [facility] Comment on above: Performed By: #### L 501.9520, L500.4050 #### [facility] [address] [place], [address] CO2 [Moles/Vol] 29.0 mmol/L Normal 21.0-32.0 [facility] Comment on above: Performed By: #### L 501.9520, L500.4050 #### [facility] [address] [place], [address] Creatinine [Mass/Vol] 0.85 mg/dL Normal 0.55-1.02 [facility] Comment on above: Result Comment: The validity of the calculated GFR GFRAA in patients over 70 years has not been determined. Clinical correlation is essential. Performed By: #### L 501.9520, L500.4050 #### [facility] [address] [place], [address] EST GFR - AA 99 mL/min Normal >60 [facility] Comment on above: Result Comment: Afri can Greek GFR Calc Performed By: #### L 501.9520, L500.4050 #### [facility] [address] [place], [address] GAP 4 Low 5-15 [facility] Comment on above: Performed By: #### L 501.9520, L500.4050 #### [facility] [address] [place], [address] GFR/1.73 sq M.predicted among non-blacks MDRD (S/P/Bld) [Vol rate/Area] 82 mL/min/{1.73_m2} Normal >60 [facility] Comment on above: Result Comment: Non- GFR Calc Performed By: #### L 501.9520, L500.4050 #### [facility] [address] [place], [address] Globulin (S) [Mass/Vol] 4.3 g/dL High 2.2-4.2 [facility] Comment on above: Performed By: #### L 501.9520, L500.4050 #### [facility] [address] [place], [address] Glucose [Mass/Vol] 103 mg/dL Normal 74-106 [facility] Comment on above: Result Comment: Fast ing Glucose result from 100 to 125 mg/dL suggests IMPAIRED HOMEOSTASIS per A.D.A. criteria. Performed By: #### L 501.9520, L500.4050 #### [facility] [address] [place], [address] Potassium [Moles/Vol] 3.9 mmol/L Normal 3.5-5.1 [facility] Comment on above: Performed By: #### L 501.9520, L500.4050 #### [facility] [address] [place], [address] Sodium [Moles/Vol] 138 mmol/L Normal 136-145 [facility] Comment on above: Performed By: #### L [id number], L500.4050 #### [facility] [address] [place], [address] T PROT 7.7 g/dL Normal 6.4-8.2 [facility] Comment on above: Performed By: #### L 501.9520, L500.4050 #### [facility] [address] [place], [address] Urea nitrogen [Mass/Vol] 14 mg/dL Normal 7-18 [facility] Comment on above: Performed By: #### L 501.9520, [id number] #### [facility] [address] [place], [address] Thyroid Stim Hormone (TSH)on 05-23-2024 TSH 0.49 uIU/mL Normal 0.358-3.74 [facility] Comment on above: Performed By: #### L 501.9520, L500.4050 #### [facility] [place], [address] Absolute lymphocyte countOrd ered By: [facility] on 02-15-2024 Lymphocytes Auto (Unsp spec) [#/Vol] 2.74 10*3/uL 0.83-4.51 [facility] Automated lymphocyte count a s percentage of total leukocytesOrdered By: [facility] Monae on 02-15-2024 Lymphocytes/100 WBC Auto (Unsp spec) 32.1 % 19-41 [facility] Basophil percentageOrdered B y: Chynakathleen Monae on 02-15-2024 Basophils/100 WBC (Bld) 0.2 % 0-1 [facility] Bilirubin [Mass/Vol] 0.40 mg/dL 0.20-1.00 [facility] Comment on above: For patients on eltr ombopag therapy, use of Dimension Dresher TBIL is not recommended. Chloride [Moles/Vol] 101 mmol/L 98-107 [facility] Eosinophils/100 WBC (Bld) 1.1 % 0-5 [facility] Glucose [Mass/Vol] 89 mg/dL 74-106 [facility] Hemoglobin (Bld) [Mass/Vol] 14.4 g/dL 12.0-15.0 [facility] Monocytes/100 WBC (Bld) 5.2 % 0-10 [facility] Neutrophils (Bld) [#/Vol] 5.2 10*3/uL 2.0-7.7 [facility] Neutrophils/100 WBC (Bld) 61.2 % 47-70 [facility] Potassium [Moles/Vol] 3.8 mmol/L 3.5-5.1 [facility] Protein [Mass/Vol] 7.9 g/dL 6.4-8.2 [facility] Sodium [Moles/Vol] 137 mmol/L 136-145 [facility] WBC (Bld) [#/Vol] 8.5 10*3/uL 4.4-11.0 [facility] Determination of erythrocyte mean corpuscular volume (MCV)Ordered By: Patience Licona on 02-15-2024 MCV (RBC) [Entitic vol] 85.1 fL 81-99 [facility] Erythrocyte distribution wid th ratioOrdered By: [facility] 02-[facility]-2024 Erythrocyte distribution width (RBC) [Ratio] 12.9 % 11.6-14.6 [facility] Erythrocyte distribution wid th standard deviationOrdered By: Patience Monae on 02-15-2024 Erythrocyte distribution width (RBC) [Entitic vol] 40.0 fL 35.1-43.9 [facility] Hematocrit Auto (Bld) [Volum e fraction]Ordered By: Patience Monae on 02-15-2024 Hematocrit (Bld) [Volume fraction] 43.4 % 37-47 [facility] Immature granulocytes/100 WB C Auto (Bld)Ordered By: [facility] on 02-15-2024 Immature granulocytes/100 WBC (Bld) 0.200 % 0.0-0.9 [facility] Comment on above: IG% - Immature Granu locytes (promyelocytes, myelocytes and metamyelocytes) > 1% indicates that a LEFT SHIFT is Present. Laboratory - Chemistry and C hemistry - challengeOrdered By: [facility] on 02-15-2024 Albumin/Globulin [Mass ratio] 0.9 {ratio} 0.9-2.4 [facility] ALP [Catalytic activity/Vol] 73 U/L 45-117 [facility] ALT [Catalytic activity/Vol] 37 U/L 13-56 [facility] CO2 [Moles/Vol] 29.0 mmol/L 21.0-32.0 [facility] Globulin (S) [Mass/Vol] 4.1 g/dL 2.2-4.2 [facility] Urea nitrogen/Creatinine [Mass ratio] 14.1 mg/mg 10-20 [facility] - Hematology and Cell countsOrdered By: [facility] on 02-15-2024 MCH (RBC) [Entitic mass] 28.2 pg 27.0-32.0 [facility] MCHC (RBC) [Mass/Vol] 33.2 g/dL 32-36 [facility] Nucleated RBC/100 WBC (Bld) [Ratio] 0 % 0-5 [facility] Platelet mean volume (Bld) [Entitic vol] 11.1 fL 6.2-12.0 [facility] Platelets (Bld) [#/Vol] 269 10*3/uL 150-450 [facility] No Panel InformationOrdered By: Patience Licona on 02-15-2024 Estimated GFR (MDRD) Amer 110 mL/min >60 [facility] Comment on above: GFR Calc Estimated GFR (MDRD) Non-Af Amer 91 mL/min >60 [facility] Comment on above: Non- GFR Calc Vitamin D 25-Hydroxy 57.9 ng/mL [facility] Comment on above: Vitamin D 25(OH) Sta tus Range Deficiency <20 ng/mL (50nmol/L) Insufficiency 20 - 30 ng/mL (50 - 75 nmol/L) Sufficiency 30 - 100 ng/mL (75 - 250 nmol/L) Toxicity >100 ng/mL (>250 nmol/L) RBC Auto (Bld) [#/Vol]Ordere d By: Patience Licona on 02-15-2024 RBC (Bld) [#/Vol] 5.10 10*6/uL 4.2-5.4 [facility] Serum or plasma calcium david urement (mass/volume)Ordered By: Patience Licona on 02-15-2024 Calcium [Mass/Vol] 9.9 mg/dL 8.5-10.1 [facility] Serum or plasma creatinine m easurement (mass/volume)Ordered By: Patience Licona on 02-15-2024 Creatinine [Mass/Vol] 0.78 mg/dL 0.55-1.02 [facility] Comment on above: The validity of the calculated GFR & GFRAA in patients over 70 years has not been determined. Clinical correlation is essential. Serum or plasma thyroid stim ulating hormone (TSH) measurement (units/volume)Ordered By: Patience Licona on 02-15-2024 TSH Qn 0.45 uIU/mL 0.358-3.74 [facility] Serum or plasma urea nitroge n measurement (mass/volume)Ordered By: Patience Licona on 02-15-2024 Urea nitrogen [Mass/Vol] 11 mg/dL 7-18 [facility] Thin prep Papanicolaou smear with manual screeningOrdered By: Patience Licona on 02-15-2024 Thin prep Papanicolaou smear with manual screening 3.8 g/dL 3.2-5.0 [facility] Thin prep Papanicolaou smear with manual screening 18 U/L 15-37 [facility] Thin prep Papanicolaou smear with manual screening 7 5-15 [facility] Thin prep Papanicolaou smear with manual screening 1.10 ng/dL 0.76-1.46 [facility] Whole blood hemoglobin A1c/t otal hemoglobin ratio (mass fraction)Ordered By: Patinece Licona on 02-15-2024 HbA1c (Bld) [Mass fraction] 5.4 % 3.8-5.6 [facility] Comment on above: Normal < 5.7 % Predi abetic 5.7 - 6.4 % Diabetic >or= 6.5 % Please note range changes. Cervical or vaginal specimen microscopic examination by liquid based cytology (reportOrdered By: Sandra Darden on 01-09-2024 Cytology report Cyto stain.thin prep Doc (Cvx/Vag) Comment . [facility] Comment on above: Criteria not met, HP V Genotype not performed.Performed at: [address] [id number] Director: Missy Fernandez MD, Phone: [phone] at: =[address] [id number] Director: Missy Fernandez MD, Phone: [phone] Cervical or vagninal specime n microscopic examination by cytology stain (reported asOrdered By: Sandra Darden on 01-09-2024 Cytology report Cyto stain Doc (Cvx/Vag) Comment . [facility] Comment on above: The Pap smear is a s creening test designed to aid in thedetection of premalignant and malignant conditions of theuterine cervix. It is not a diagnostic procedure andshould not be used as the sole means of detecting cervicalcancer. Both false-positive and false-negative reports dooccur. Detection in cervical specim en of any of human papilloma virus (HPV) 16, 18, 31, 33,Ordered By: Sandra Darden on 01-09-2024 HPV 16+18+31+33+35+39+45+51+52 +56+58+59+66+68 DNA Probe+sig amp Ql (Cvx) Negative Negative [facility] Comment on above: This nucleic acid am plification test detects fourteen high-risk HPV types (16,18,31,33,35,39,45,51,52,56,58,59,66,68)without differentiation. Laboratory - Chemistry and C hemistry - challengeon 01-09-2024 HCG ( test) Ql (U) Negative [facility] - CytologyOrdered By: Sandra Darden on 01-09-2024 Naturopathic Oncology Provider Cyto stain Nom (Cvx/Vag) [ID] Comment . [facility] Comment on above: Terry De La Cruz ytotechnologist (ASCP) Laboratory - Miscellaneous t estsOrdered By: Sandra Darden on 01-09-2024 Service comment (Unsp spec) [Interp] . . [facility] No Panel InformationOrdered By: Sandra Darden on 01-09-2024 Dehydroepiandrosterone Sulfate 236.0 ug/dL 84.8-378.0 [facility] Estradiol (E2) Level 30.6 pg/mL [facility] Comment on above: NORMAL REFERENCE RAN GES FEMALE FOLLICULAR 21.4 - 164.8 pg/mL MID-CYCLE PEAK 49.9 - 367.2 pg/mL LUTEAL 40.2 - 259.0 pg/mL POST-MENOPAUSAL ON MHT <11.0 - 462.1 pg/mL NOT ON MHT <11.0 - 58.3 pg/mL MALE <11.0 - 52.5 pg/mL NOTE:[employer] HAS CONFIRMED THE DRUG FULVETRANT (FASLODEX) MAY CAUSE FALSELY ELEVATED ESTRADIOL RESULTS WHEN USING THIS TEST METHOD. IF PATIENT IS TAKING FULVESTRANT AN ALTERNATIVE METHOD SHOULD BE USED TO DETERMINE ESTRADIOL CONCENTRATION. Follicle Stimulating Hormone 4.9 mIU/mL [facility] Comment on above: NORMAL REFERENCE RAN GES FEMALE FOLLICULAR 2.3 - 12.6 mIU/mL MID-CYCLE PEAK 5.2 - 17.5 mIU/mL LUTEAL 1.7 - 12.9 mIU/mL POST-MENOPAUSAL ON MHT 5.9 - 72.8 mIU/mL NOT ON MHT 12.7 - 132.2 mlU/mL MALE 0.7 - 10.8 mIU/mL Prolactin 6.8 ng/mL [facility] Comment on above: NORMAL REFERENCE RAN GES FEMALE NON- 2.2 - 30.3 ng/mL 8.1 - 347.6 ng/mL POST-MENOPAUSAL 0.7 - 31.5 ng/mL MALE 2.5 - 17.4 ng/mL Serum or plasma testosterone free measurement (mass/volume)Ordered By: Sandra Darden on 01-09-2024 Testosterone Free [Mass/Vol] 1.8 pg/mL 0.0-4.2 [facility] Comment on above: Performed at: [facility] [address] [id number] Director: Bakari Paniagua PhD, Phone: [phone] at: [facility] [id number] Director: Al Fuentes MD, Phone: [phone] Thin prep Papanicolaou smear with manual screeningOrdered By: Sandra Darden on 01-09-2024 Thin prep Papanicolaou smear with manual screening Comment . [facility] Comment on above: NEGATIVE FOR INTRAEP ITHELIAL LESION OR MALIGNANCY. This liquid based Th inPrep(R) pap test was screened withthe use of an image guided system. ANES Reyes 03-21-2019 ANES POST HNO ID: [id number] Author: David Cruz Service: Anesthesiology Author Type: Nurse Plateman Type: Anesthesia PostOp Filed: 03/20/2019 10:15 PM Note Text: Attestation signed by Rishi Neil at 03/21/2019 9:25 AM This note reviewed. Findings noted. POST ANESTHESIA EVALUATION NOTE SERVICE DATE: 03/20/2019 SERVICE TIME: 10:03 PM : 1990 Vitals: 03/20/19 0615 03/20/19 0700 03/20/19 1500 03/20/192146 Temp: 37 ?C (98.6 ?F) 36.9 ?C (98.4 ?F) 37 ?C (98.6 ?F) 36.7 ?C (98.1 ?F) 03/20/19 0615 03/20/19 0700 03/20/19 1500 03/20/192146 BP: 110/71 116/79 117/67 114/77 03/20/19 0615 03/20/19 0700 03/20/19 1500 03/20/192146 Pulse: 72 76 83 93 03/20/19 0615 03/20/19 0700 03/20/19 1500 03/20/192146 Resp: 18 16 16 18 03/20/19 0615 03/20/19 0700 03/20/19 1500 03/20/192146 SpO2: 99% 96% 96% 97% Validated Vital Signs: Yes POST ANES STATUS: No apparent anesthetic complications. The patient is appropriately hydrated with stable respiratory and cardiovascular status. Patient has safe and adequate airway control. The patient has appropriate pain relief and no significant post operative nausea or vomiting. The patient has achieved baseline mental status. Intra-Operative Events: No Significant Anesthesia Events Further assessment by Anesthesia Service: Spoke with pt regarding lt foot numbness. Negative pain / foot drop. Gait and strength normal. Reports less numbness currently. Probable stretch injury due to pushing and legs in stirrups x 2 hrs. Reassured her that nerve injury is remote. Being discharged in the morning. Instructed to contact anesthesia dept with any further questions. Other Remarks: SIGNATURE: David Cruz APRN.SOLUTION ENGINEER PATIENT NAME: Lore Gardner DATE: March 20, 2019 TIME: 10:03 PM PAGER/CONTACT #: Sunday [facility] PROGRESSon 03-21-2019 Protein mass conc HNO ID: [id number] Author: Nikolai Ryder DO Service: Obstetrics Author Type: Resident Type: Progress Notes Filed: 03/21/2019 5:07 AM Note Text: OBSTETRICS PROGRESS NOTE SERVICE DATE: March 21, 2019 SERVICE TIME: 5:05 AM ASSESSMENT: 29 year old female who is Day #2 status post Vaginal, Spontaneous delivery with male . PLAN: 1. Routine care 2. GDMA1 - Fasting BG PPD#1 107 - Will need 2-hr GTT 4-12 weeks 3. Elevated blood pressure reading - Surrounding time of delivery - Normotensive since delivery 4. Dispo - d/c per attending SUBJECTIVE: Patient has no current complaints. Tolerating PO intake. Urinating without difficulty. Pain well controlled with current regimen. Lochia decreasing. Ambulating without difficulty. OBJECTIVE: PHYSICAL EXAM: Heart: RR, S1, S2, no moe, rub, or murmur appreciated Lungs: clear to auscultation Abdomen: Soft Fundus firm below umbilicus Non-distended Extremities: No calf tenderness and No edema LAST VITALS: Pulse BP Resp O2 Sat Temp Pain 93 114/77 18 97 % 36.7 ?C (98.1 ?F) 0 Avg Min Max Vitals (last 12 hours) Flowsheet Row Name Average Min Max BP: Systolic 114 114 114 BP: Diastolic 77 77 77 Temp 36.7 ?C (98.1 ?F) 36.7 ?C (98.1 ?F) 36.7 ?C (98.1 ?F) Pulse 93 93 93 Resp 18 18 18 SpO2 97 % 97 % 97 % HT/WT/BMI: Height Weight BMI 152.4 cm (5') 77.1 kg (170 lb) 33.2 LABS ABO/RH: 03/19/2019: A; Positive RUBELLA: 08/19/2018: Immune HANDH: Hematocrit (%) Date Value 03/19/2019 33.6 HGB (g/dL) Date Value 03/19/2019 10.8 Diagnostic tests reviewed for today's visit: Most recent labs SIGNATURE: Nikolai Ryder DO PATIENT NAME: Lore Gardner DATE: March 21, 2019 TIME: 5:05 AM [facility] ANES INTRAOPon 03-20-2019 ANES INTRAOP HNO ID: [id number] Author: Shady Granado Service: Anesthesiology Author Type: Nurse Plateman Type: Anesthesia IntraOp Filed: 03/20/2019 10:05 AM Note Text: .ANALGESIA PROGRESS RECORD CATHETER REMOVAL/END OF CASE SERVICE DATE: 03/20/2019 REMOVAL DATE AND TIME: 0200 DELIVERY DATE AND TIME: 03/19/2019 at 11:32 PM CATHETER REMOVAL: Catheter Removal: Epidural catheter pulled intact, no apparent complications. by RN SIGNATURE: Shady Granado APRN.CRNA PATIENT NAME: Lore Gardner DATE: March 20, 2019 TIME: 10:04 AM PAGER/CONTACT #: [facility] ANES Reyes 03-20-2019 ANES POST HNO ID: [id number] Author: Shady Granado Service: Anesthesiology Author Type: Nurse Plateman Type: Anesthesia PostOp Filed: 03/20/2019 8:56 AM Note Text: POST ANESTHESIA EVALUATION NOTE SERVICE DATE: 03/20/2019 SERVICE TIME: 8:54 AM : 1990 Vitals: 03/20/19 0130 03/20/19 0230 03/20/1961403/20/19 0700 Temp: 37.4 ?C (99.3 ?F) 36.9 ?C (98.4 ?F) 37 ?C (98.6 ?F) 36.9 ?C (98.4 ?F) 03/20/19 01403/20/19 0230 03/20/19 0615 03/20/19 0700 BP: 119/69 110/74 110/71 116/79 03/20/19 0145 03/20/19 0230 03/20/19 0615 03/20/19 0700 Pulse: 98 88 72 76 03/19/19 1915 03/20/19 0230 03/20/19 0615 03/20/19 0700 Resp: 17 18 18 16 03/19/19 2345 03/20/19 0230 03/20/19 0615 03/20/19 0700 SpO2: 100% 96% 99% 96% Validated Vital Signs: Yes POST ANES STATUS: No apparent anesthetic complications. The patient is appropriately hydrated with stable respiratory and cardiovascular status. Patient has safe and adequate airway control. The patient has appropriate pain relief and no significant post operative nausea or vomiting. The patient has achieved baseline mental status. Intra-Operative Events: pt complains of left foot numbness. Delivered approx 8 hrs ago and pushed for almost 2 hrs per pt in stirups. Will reevaluate later today. Instructed pt to call if it gets worse or doesn't resolve Further assessment by Anesthesia Service: None Other Remarks: SIGNATURE: Shady Granado APRN.CRNA PATIENT NAME: Lore Gardner DATE: March 20, 2019 TIME: 8:54 AM PAGER/CONTACT #: [phone] Normal [facility] Glucose Meteron 03-20-2019 Glucose mass conc 107 mg/dL High 70-99 [facility] Comment on above: Result Comment: ELZBIETA N OTIFIED Performed By: #### G LMET #### [place] [address] LD NOTEon 03-20-2019 LD NOTE HNO ID: [id number] Author: Nikolai Ryder DO Service: Obstetrics Author Type: Resident Type: LANDD Delivery Note Filed: 03/19/2019 11:56 PM Note Text: Attestation signed by Ethan Calabrese at 03/26/2019 4:25 PM Agree with documented note. Ethan Calabrese MD 4:24 PM OBSTETRICS DELIVERY SUMMARY - VAGINAL DELIVERY Gestational Age at Delivery: 40w0d Service Date: 03/19/2019 Service Time: 11:53 PM Casper Gardner [[id number]] Labor Events Rupture Date: 03/19/19 Rupture Time: 1123 Rupture Type: AROM Fluid Color: Clear Induction: Yes Induction Method: Oxytocin, AROM Episiotomy/Laceratio n: Episiotomy: None Lacerations: 1st Perineal Repair Completed: No Estimated Blood Loss (mL): Estimated Blood Loss (mL): 150 Date and Time of : Date of : 03/19/19 Time of : 2332 Delivery Information: Primary Reason for Delivery : Diabetes - Gestational Delivery type: Vaginal, Spontaneous Presentation: Vertex Shoulder Dystocia Present: No Vacuum Used: No Forceps Used: No Presentation AND Position Presentation: Vertex Position: OA Cord: Complications: Nuchal with Compression Nuchal Cord Findings: x 1, Tight Delayed Cord Clampin-60 sec Placenta: Removal: Spontaneous Appearance: Intact Anesthesia: Method: Epidural Measurements, Apgars: Code [place] Called: No 29 year old G4 now P1021 who presented to [facility] at 40w0d for induction of labor for gestational diabetes. Patient's antepartum course was complicated by GDMA1. Patient was induced with Pitocin and amniotomy. She received her epidural for maternal analgesia. She progressed along a normal labor curve to complete cervical dilation and began to push. As the vertex was , the patient was prepped and draped in the normal sterile fashion in the dorsal lithotomy position. The vertex then delivered over an intact perineum from the occiput anterior position which restituted to the maternal right. After delivery of the head, the anterior and posterior shoulders were delivered followed by the remainder of the infant's body. A tight nuchal cord x1 was noted and delivered through. Delayed cord clamping was observed for approximately 30 seconds. The cord was doubly clamped and cut. Cord blood samples were obtained. The placenta then delivered with gentle cord traction. Pitocin bolus was started. Vaginal exploration revealed a small 1st degree perineal laceration that did not require repair. Excellent hemostasis was noted. A digital sweep of the vaginal canal was performed by the Resident and it was ascertained that no instruments or other foreign bodies are retained within the cavity. Sponge, lap, and needle counts were correct times two. Mother and baby are stable and bonding and skin to skin. Baby is in mother's arms. SIGNATURE: Nikolai Ryder DO PATIENT NAME: Lore Gardner DATE: March 19, 2019 TIME: 11:53 PM Normal [facility] PROGRESSon 03-20-2019 Protein mass conc HNO ID: [id number] Author: Nikolai Ryder DO Service: Obstetrics Author Type: Resident Type: Progress Notes Filed: 03/20/2019 5:15 AM Note Text: Attestation signed by Vince Duckworth at 03/20/2019 6:04 PM I saw and evaluated the patient. Discussed with the resident and agree with resident's findings and plan as documented in the resident's note. OBSTETRICS PROGRESS NOTE SERVICE DATE: March 20, 2019 SERVICE TIME: 5:10 AM ASSESSMENT: 29 year old female who is Day #1 status post Vaginal, Spontaneous delivery with male . PLAN: 1. Routine care 2. GDMA1 - Fasting BG PPD#1 pending 3. Elevated blood pressure reading - Isolated mild blood pressures x2 during pushing process - Normotensive since delivery 4. Dispo - d/c per attending SUBJECTIVE: Patient has no current complaints. Tolerating PO intake. Urinating without difficulty. Pain well controlled with current regimen. Lochia decreasing. Ambulating without difficulty. OBJECTIVE: PHYSICAL EXAM: Heart: RR, S1, S2, no moe, rub, or murmur appreciated Lungs: clear to auscultation Abdomen: Soft Fundus firm below umbilicus Non-distended Extremities: No calf tenderness and No edema LAST VITALS: Pulse BP Resp O2 Sat Temp Pain 88 110/74 18 96 % 36.9 ?C (98.4 ?F) 0 Avg Min Max Vitals (last 12 hours) Flowsheet Row Name Average Min Max BP: Systolic 118.44 99 141 BP: Diastolic 67.64 54 108 Temp 37.1 ?C (98.73 ?F) 36.5 ?C (97.7 ?F) 37.7 ?C (99.9 ?F) Pulse 99.36 79 130 (Abnormal) Resp 17.5 17 18 SpO2 98.67 % 96 % 100 % HT/WT/BMI: Height Weight BMI 152.4 cm (5') 77.1 kg (170 lb) 33.2 LABS ABO/RH: 03/19/2019: A; Positive RUBELLA: 08/19/2018: Immune HANDH: Hematocrit (%) Date Value 03/19/2019 33.6 HGB (g/dL) Date Value 03/19/2019 10.8 Diagnostic tests reviewed for today's visit: No new labs SIGNATURE: Nikolai Ryder DO PATIENT NAME: Lore Gardner DATE: March 20, 2019 TIME: 5:10 AM Normal [facility] Protein mass conc HNO ID: [id number] Author: Nikolai Ryder DO Service: Obstetrics Author Type: Resident Type: Progress Notes Filed: 03/19/2019 10:29 PM Note Text: Attestation signed by Ethan Calabrese at 03/19/2019 10:33 PM Present on unit since pt 9 cm. Now complete. Agree with resident note. Pushing now. head asynclitic. Ethan Calabrese MD 10:33 PM Patient complete and pushing at this time. Dr. Calabrese on unit. BP 121/68 Pulse 104 Temp 37.3 ?C (99.1 ?F) (Oral) Resp 17 Ht 152.4 cm (5') Wt 77.1 kg (170 lb) LMP 06/02/2018 SpO2 100% BMI 33.20 kg/m? FHT: 130/mod variability/+ accels/intermittent late decels with pushing Romney: q1-3min Active Hospital Problems Diagnosis Date Noted - Encounter for induction of labor 03/19/2019 Overview Note: GBS neg Pit per protocol Epi in AROM clear @ 1120 EFW - US @ 38 weeks 7.5 lbs - 40 weeks gestation of 03/19/2019 - Gestational diabetes mellitus (GDM) affecting second 03/19/2019 Overview Note: GDMA1 FBS 81 @ 0717 BS on arrival 102 @ 0820 SIGNATURE: Nikolai Ryder DO PATIENT NAME: Lore Gardner DATE: 03/19/2019 TIME: 10:29 PM PAGER: [phone] Normal [facility] ABO/Rh Confirmationon 2018 ABO group Nom (Bld) A Normal [facility] Comment on above: Performed By: #### A SRIKANTH #### [place] [address] RH Type Positive Normal [facility] Comment on above: Performed By: #### A SRIKANTH #### [place] [address] ANES PREOPon 03-19-2019 ANES PREOP HNO ID: [id number] Author: Shady Del Toro) Jackson Service: Anesthesiology Author Type: Nurse Plateman Type: Anesthesia PreOp Filed: 03/19/2019 4:38 PM Note Text: OB ANESTHESIA PRE-PROCEDURE ASSESSMENT SERVICE DATE: 03/19/2019 SERVICE TIME: 1615 Estimated body mass index is 33.2 kg/m? as calculated from the following: Height as of this encounter: 152.4 cm (5'). Weight as of this encounter: 77.1 kg (170 lb). ASA Class: 2 Adequate NPO Status: Yes ALLERGIES Allergen Reactions - Augmentin [Amoxicil* Hives Intolerance per pt. Airway Assessment: MP 2; Neck ROM: Full ROM without neurologic symptoms; Airway Evaluation: No significant abnormalities Dentition: Teeth intact Symptoms of Sleep Apnea: Denies Hematocrit Date Value Ref Range Status 03/19/2019 33.6 (L) 34.1 - 44.9 % Final Platelet Count Date Value Ref Range Status 03/19/2019 212 182 - 369 thou/cmm Final Vitals: 03/19/19 1627 03/19/19 1630 03/19/19 1633 03/19/19 1636 BP: 132/83 122/76 121/72 117/68 Pulse: 91 103 89 99 Resp: Temp: TempSrc: SpO2: Weight: Height: Previous Anesthesia: No history of adverse event Family history of anesthetic problems: None Additional Physical Exam: Lungs: Clear to auscultation. Breath Sounds Equal: Yes Cardiac: Regular rhythm Additional Pertinent Findings: None OBSTETRIC HISTORY: ACTIVE PROBLEM LIST 40 Weeks Gestation of Encounter for Induction of Labor Gestational Diabetes Mellitus (Gdm) Affecting Second Previous OB Anesthetic: Epidural Past Obstetric History: None Current Obstetric Problems/ Important Considerations: None GERD: Denies GERD Anesthetic Risks, Benefits, Alternatives, Personnel and Consent Discussed. Separate Consent Signed at this Interview: Yes Blood Products: Not anticipated for this procedure ANESTHETIC PLAN: Neuraxial Block for Labor Pain Management Plan: Parenteral or Oral [facility] Chart Review ACTIVE PROBLEM LIST 40 Weeks Gestation of Encounter for Induction of Labor Gestational Diabetes Mellitus (Gdm) Affecting Second PAST MEDICAL HISTORY Diagnosis Date - Diabetes (HCC) - Diabetes, gestational - Thyroid disease Hyperthyroidism PAST SURGICAL HISTORY Procedure Laterality Date - ELBOW SURGERY HX N/A 2001 x2 - LAP INC HERNIA REPAIR N/A 11/1999 No family history on file. Social History Tobacco Use - Smoking status: Never Smoker - Smokeless tobacco: Never Used Substance Use Topics - Alcohol use: Never Frequency: Never - Drug use: Never Medications Prior to Admission: vits62/FA/om3/dha/ep a ( GUMMY ORAL) Take 1 tablet by mouth once daily. Disp: Rfl: 03/18/2019 at Unknown time Inpatient medications reviewed in [facility]. I have interviewed and examined the patient. I have reviewed the medical record , pertinent consults and/or the pre-anesthesia evaluation, pertinent labs, and test results. Significant changes in the patient's condition since the History and Physical, not otherwise documented in primary service progress notes: No This contains updated information obtained within 48 hours of Surgery/Procedure. SIGNATURE: Shady Paz APRN.CRNA PATIENT NAME: Lore Gardner DATE: March 19, 2019 TIME: 4:37 PM : 1990 Normal [facility] HISTORY PHYSICALon HISTORY PHYSICAL HNO ID: [id number] Author: Roxy (Soledad) Ginny Service: Obstetrics Author Type: Nurse Practitioner Type: HANDP Filed: 03/19/2019 9:21 AM Note Text: OBSTETRICS HISTORY AND PHYSICAL SERVICE DATE: March 19, 2019 SERVICE TIME: 829 Subjective Patient's stated reason for arrival: Induction CHIEF COMPLAINT: Induction of Labor HISTORY OF THE PRESENT ILLNESS: The patient is a 29 year old female, , who is at 40w0d with an WILFREDO of 03/19/2019, by Patient Reported dating method. Patient is here for induction for GDMA1. Good movement. Denies vaginal bleeding., Denies contractions., Denies leaking of fluid. Previous /delivery complicated by GDMA1 MRSA denies HSV denies POST DELIVERY CONTRACEPTION: Discussed post-delivery contraception options. Patient received written information about post-delivery contraception options. Patient does not desire post-delivery contraception. HISTORY REVIEW PAST MEDICAL HISTORY Diagnosis Date - Diabetes (HCC) - Diabetes, gestational - Thyroid disease Hyperthyroidism PAST SURGICAL HISTORY Procedure Laterality Date - ELBOW SURGERY HX N/A 2001 x2 - LAP INC HERNIA REPAIR N/A 11/1999 No family history on file. Social History Tobacco Use - Smoking status: Never Smoker - Smokeless tobacco: Never Used Substance Use Topics - Alcohol use: Never Frequency: Never - Drug use: Never Obstetric History T1 L1 SAB2 TAB0 Ectopic0 Multiple0 Live Births1 Name of Baby 1: Not recorded Date: 04/2016 GA: 39w0d Delivery: Vaginal, Spontaneous Apgar1: Not recorded Apgar5: Not recorded Living: Living Name of Baby 2: Not recorded Date: 12/2017 GA: 8w0d Delivery: Not recorded Apgar1: Not recorded Apgar5: Not recorded Living: Not recorded Name of Baby 3: Not recorded Date: 04/2018 GA: 6w0d Delivery: Not recorded Apgar1: Not recorded Apgar5: Not recorded Living: Not recorded Name of Baby 4: Not recorded Date: Not recorded GA: Not recorded Delivery: Not recorded Apgar1: Not recorded Apgar5: Not recorded Living: Not recorded There are no active non-hospital problems to display for this patient. ALLERGIES Allergen Reactions - Augmentin [Amoxicil* Hives Intolerance per pt. Prior to Admission Medications Prescriptions Last Dose Informant Patient Reported? Taking? vits62/FA/om3/dha/ep a ( GUMMY ORAL) 03/18/2019 at Unknown time Yes Yes Sig: Take 1 tablet by mouth once daily. Facility-Administere d Medications: None REVIEW OF SYSTEMS: PAIN ASSESSMENT: Negative for pain, history of chronic pain, or current treatment for a chronic pain condition. GENERAL: No weight loss, malaise or fevers. HEENT: Negative for frequent or significant headaches, No changes in hearing or vision, no nose bleeds or other nasal problems NECK: Negative for goiter, pain or significant neck swelling RESPIRATORY: Negative for cough, hemoptysis, wheezing, COPD, dyspnea or shortness of breath CARDIOVASCULAR: Negative for chest pain, leg swelling, hypertension, CHF or palpitations GI: No nausea, vomiting, or diarrhea : No history of dysuria, frequency or incontinence DRY CURE WORKER: Negative for abnormal vaginal bleeding, abnormal vaginal discharge The remainder of the review of systems is negative. Objective LAST VITALS: Pulse BP Resp O2 Sat Temp Pain 108 20 98 % 36.9 ?C (98.4 ?F) 0 HT/WT/BMI: Height Weight BMI 152.4 cm (5') 77.1 kg (170 lb) 33.2 PHYSICAL EXAM: General: WD, WN, obese, NAD, pleasant HEENT: NC/AT, sclera white, pupils equal, no thyromegaly Lungs: clear Heart: RR, S1, S2 Abdomen: soft, nontender, no masses Uterus: soft, NT, gravid Extremities: tr edema DTRs: trace FHT: 150 bpm (03/19/19 0838 : Cheyanne (Rn) ELZBIETA Hill) bpm St Spec Exam: (not done) CERVICAL EXAM: Dilation: 3 (03/19/19 0843 : Jyotsna (Res) Ochoa) cm Station: -3 (03/19/1943 : Jyotsna (Res) Ochoa) Effacement: 70 (03/19/19 0843 : Jyotsna (Res) Ochoa) % Position: Presentation: vertex Pelvimetry: Pelvimetry clinically assessed as adequate MONITORING/ASSESSMEN T: Baseline: 150 bpm (03/19/19 0838 : Cheyanne JordanRnKaroline Hill RN) Variability: moderate Accelerations: present Decelerations: absent Contractions: denies Frequency: NST Interpretation: FHR Category: Category 1 FHR tracing ULTRASOUND: per Jes MENON US findings: Head position: cephalic, HR: detected, Placental location: anterior LABS Diagnostic tests reviewed for today's visit: Most recent labs Assessment/Plan 29 year old EGA:40w0d. IOL GDMA1 Active Problems: 40 weeks gestation of (03/19/2019) POA: Yes Encounter for induction of labor (03/19/2019) POA: Yes Overview: IOL for GDMA1 GBS neg Pit per protocol Epi/AROM prn EFW - US @ 38 weeks 7.5 lbs Denies PPBC Gestational diabetes mellitus (GDM) affecting second (03/19/2019) POA: Yes Overview: GDMA1 FBS 81 @ 0717 BS on arrival 102 @ 0820 D/W Dr. Kumar SIGNATURE: Roxy Gross APRN.CNP PATIENT NAME: Lore Gardner DATE: March 19, 2019 TIME: 9:03 AM PAGER/CONTACT #: [phone] Normal [facility] Hemogramon 03-19-2019 Erythrocyte distribution width Ratio (RBC) 14.7 % High 11.7-14.4 [facility] Comment on above: Performed By: #### C BC1 #### [facility] [address] [place] [address] Hematocrit Volume Fraction (Bld) 33.6 % Low 34.1-44.9 [facility] Comment on above: Performed By: #### C BC1 #### [facility] [address] [place], [place] [address] Hemoglobin mass conc (Bld) 10.8 g/dL Low 11.2-15.7 [facility] Comment on above: Performed By: #### C BC1 #### [facility] [address] [place] [address] MCH Entitic mass (RBC) 27.5 pg Normal 25.6-32.2 [facility] Comment on above: Performed By: #### C BC1 #### [facility] [address] [place] [address] MCHC mass conc (RBC) 32.1 % Normal 31.6-34.8 [facility] Comment on above: Performed By: #### C BC1 #### [facility] [address] [place] [address] MCV Entitic volume (RBC) 85.5 fL Normal 79.4-94.8 [facility] Comment on above: Performed By: #### C BC1 #### [facility] [address] [place] [address] Platelet mean volume Entitic volume (Bld) 11.3 fL Normal 9.4-12.3 [facility] Comment on above: Performed By: #### C BC1 #### [facility] [address] [place] [address] Platelets #/vol (Bld) 212 thou/cmm Normal 182-369 [facility] Comment on above: Performed By: #### C BC1 #### [facility] [address] [place] [address] RBC #/vol (Bld) 3.93 mil/cmm Normal 3.93-5.22 [facility] Comment on above: Performed By: #### C BC1 #### [facility] [address] [place] [address] RDW SD 45.7 fl Normal 36.4-46.3 [facility] Comment on above: Performed By: #### C BC1 #### [place] [address] WBC #/vol (Bld) 7.69 thou/cmm Normal 3.98-10.04 [facility] Comment on above: Performed By: #### C BC1 #### [place] [address] NURSING PROGon 03-19-2019 Protein mass conc HNO ID: [id number] Author: Lin (Rn) ELZBIETA Willoughby Service: Nursing Author Type: Registered Nurse Type: Nursing Progress Note Filed: 03/19/2019 3:56 PM Note Text: Pt on birthing ball and contemplating epidural. Requesting to be checked before getting epidural. Dr. Tijerina notified. Pt up to bathroom to void. [facility] PROCEDUREon 03-19-2019 Protein mass conc HNO ID: [id number] Author: Shady Del Toro) Jackson Service: Anesthesiology Author Type: Nurse Plateman Type: Procedures Filed: 03/19/2019 4:41 PM Note Text: OB ANESTHESIA PROCEDURE: EPIDURAL LABOR PCEA ANALGESIA PROCEDURE DATE: 03/19/2019 PROCEDURE START TIME: 8 The patient was placed in a sitting position. Timeout was performed and informed consent confirmed (see nurse's documentation). Using sterile technique, the patient's back was prepped and draped. Skin site was infiltrated with local anesthetic. Beginning Pain Score: 7 out of 10 VItals: Last Pulse 03/19/19 : 99 Last BP 03/19/19 : 117/68 Needle: 17 gauge Tuohy Depth of Needle: 5 cm Depth of Catheter at Skin: 10 cm Cm of Catheter in Epidural Space: 5 cm Interspace: approximately L3-L4 Number of Attempts: 1 Wet Tap Complication: No Dural Puncture Epidural: No Loss of Resistance: Saline Parasthesias: None Time Amt Medication Pulse B.P. Comments Catheter TEST 1624 3 cc 1.5% Lidocaine with 1:200,000 Epinephrine 95 132/87 Negative Catheter BOLUS 1627 6 cc 0.2% rop INFUSION 1629 3cc q20 minutes 0.2% rop 89 121/72 Patient comfortable able to flex knees Pain Score After Treatment: 2 out of 10 See nurses' documentation for additional vitals. SIGNATURE: Shady Paz APRN.SOLUTION ENGINEER PATIENT NAME: Lore Gardner DATE: March 19, 2019 TIME: 4:38 PM PAGER/CONTACT #: [facility] PROGRESSon 03-19-2019 Protein mass conc HNO ID: [id number] Author: Ioana Perrin Service: Obstetrics Author Type: Resident Type: Progress Notes Filed: 03/19/2019 9:38 PM Note Text: OBSTETRICS INTRAPARTUM PROGRESS NOTE SERVICE DATE: March 19, 2019 SERVICE TIME: 9:35 PM Subjective Patient with no complaints. Objective LAST VITALS: Pulse BP Resp O2 Sat Temp Pain 108 124/83 17 100 % 36.5 ?C (97.7 ?F) 0 CERVICAL EXAM: Last Exam Notes: Dilation: 9 (03/19/192031 : Nikolai Ryder DO) Effacement (%): 90 (03/19/192031 : Nikolai Ryder DO) Station: 1 (03/19/192031 : Nikolai Ryder DO) Presentation: (not recorded) MEMBRANES: Status: Membrane Status: Artificial (03/19/193 : Lula (Res) Precious) Rupture Date: 03/19/19 (03/19/19 1123 : Lula (Res) Precious) Rupture Time: 1123 (03/19/19 1123 : Lula (Res) Prceious) Amniotic Fluid Color: Clear (03/19/19 1123 : Lula (Res) Precious) Amniotic Fluid Amount: Small (03/19/19 1123 : Lula (Res) Precious) Additional Findings: None MONITORING 130s/mod/+accels/int ermittent early decels, intermittent late decels, isolated mild variable decels TOCO q 2-4min Cat II FHT - not on protocol LABS Diagnostic tests reviewed for today's visit: No new labs Assessment/Plan 29 year old EGA:40w0d. Admitted for induction of labor for GDMA1. Active Hospital Problems Diagnosis Date Noted - Encounter for induction of labor 03/19/2019 GBS neg Pit per protocol Epi in AROM clear @ 1120 EFW - US @ 38 weeks 7.5 lbs - 40 weeks gestation of 03/19/2019 - Gestational diabetes mellitus (GDM) affecting second 03/19/2019 GDMA1 Most recent BS 64 Dr. Calabrese updated and in house SIGNATURE: Ioana Perrin DO PATIENT NAME: Lore Gardner DATE: March 19, 2019 TIME: 9:37 PM PAGER/CONTACT #: [phone] Normal [facility] Protein mass conc HNO ID: [id number] Author: Nikolai Ryder DO Service: Obstetrics Author Type: Resident Type: Progress Notes Filed: 03/19/2019 8:34 PM Note Text: SVE now /+1. Patient overall very comfortable. Dr. Calabrese updated. Will plan to recheck in 1 hour. SIGNATURE: Nikolai Ryder DO PATIENT NAME: Lore Gardner DATE: 03/19/2019 TIME: 8:34 PM PAGER: [phone] Normal [facility] Protein mass conc HNO ID: [id number] Author: Nikolai Ryder DO Service: Obstetrics Author Type: Resident Type: Progress Notes Filed: 03/19/2019 8:05 PM Note Text: Patient comfortable with epidural. BP 110/65 Pulse 100 Temp 36.5 ?C (97.7 ?F) (Tympanic) Resp 17 Ht 152.4 cm (5') Wt 77.1 kg (170 lb) LMP 06/02/2018 SpO2 100% BMI 33.20 kg/m? FHT: 130/mod variability/+ accels/intermittent mild to moderate variable decels with ctx, isolated late decels Romney: q2-4min Active Hospital Problems Diagnosis Date Noted - 40 weeks gestation of 03/19/2019 - Encounter for induction of labor 03/19/2019 Overview Note: IOL for GDMA1 GBS neg Pit per protocol Epi in AROM clear @ 1120 EFW - US @ 38 weeks 7.5 lbs Denies PPBC - Gestational diabetes mellitus (GDM) affecting second 03/19/2019 Overview Note: GDMA1 FBS 81 @ 0717 BS on arrival 102 @ 0820 SIGNATURE: Nikolai Ryder DO PATIENT NAME: Lore Gardner DATE: 03/19/2019 TIME: 8:04 PM PAGER: [phone] Normal [facility] Protein mass conc HNO ID: [id number] Author: Zayda Tijerina Service: Obstetrics Author Type: Resident Type: Progress Notes Filed: 03/19/2019 5:33 PM Note Text: Pt comfortable with epidural. BP 108/67 Pulse 84 Temp 36.9 ?C (98.4 ?F) (Temporal Artery) Resp 16 Ht 152.4 cm (5') Wt 77.1 kg (170 lb) LMP 06/02/2018 SpO2 100% BMI 33.20 kg/m? FHT: 135/mod/+accels/+ear ly decels Romney: q1-3 mins Cat I FHT Active Hospital Problems Diagnosis Date Noted - 40 weeks gestation of 03/19/2019 - Encounter for induction of labor 03/19/2019 IOL for GDMA1 GBS neg Pit per protocol Epi in AROM clear @ 1120 EFW - US @ 38 weeks 7.5 lbs Denies PPBC - Gestational diabetes mellitus (GDM) affecting second 03/19/2019 GDMA1 FBS 81 @ 0717 BS on arrival 102 @ 0820 Dr. Calabrese with most recent SVE. Zayda Tijerina, PGY-2 Obstetrics and Gynecology Pager 03/19/2019 5:33 PM Normal [facility] Protein mass conc HNO ID: [id number] Author: Zayda Tijerina Service: Obstetrics Author Type: Resident Type: Progress Notes Filed: 03/19/2019 4:04 PM Note Text: Pt requesting epidural. BP 126/73 Pulse 89 Temp 36.4 ?C (97.5 ?F) (Oral) Resp 18 Ht 152.4 cm (5') Wt 77.1 kg (170 lb) LMP 06/02/2018 SpO2 99% BMI 33.20 kg/m? FHT: 140/mod/+accels/+rec urrent early decels Romney: q1-3mins Cat I FHT Active Hospital Problems Diagnosis Date Noted - 40 weeks gestation of 03/19/2019 - Encounter for induction of labor 03/19/2019 IOL for GDMA1 GBS neg Pit per protocol Epi now AROM clear @ 1120 EFW - US @ 38 weeks 7.5 lbs Denies PPBC - Gestational diabetes mellitus (GDM) affecting second 03/19/2019 GDMA1 FBS 81 @ 0717 BS on arrival 102 @ 0820 Normal [facility] Protein mass conc HNO ID: [id number] Author: Zayda Tijerina Service: Obstetrics Author Type: Resident Type: Progress Notes Filed: 03/19/2019 3:32 PM Note Text: Pt wihtout complaints. BP 126/73 Pulse 89 Temp 36.4 ?C (97.5 ?F) (Oral) Resp 18 Ht 152.4 cm (5') Wt 77.1 kg (170 lb) LMP 06/02/2018 SpO2 99% BMI 33.20 kg/m? FHT: 130/mod/+accels/neg decels Romney: q1-3 mins Cat I FH T Active Hospital Problems Diagnosis Date Noted - 40 weeks gestation of 03/19/2019 - Encounter for induction of labor 03/19/2019 IOL for GDMA1 GBS neg Pit per protocol Epi prn AROM clear @ 1120 EFW - US @ 38 weeks 7.5 lbs Denies PPBC - Gestational diabetes mellitus (GDM) affecting second 03/19/2019 GDMA1 FBS 81 @ 0717 BS on arrival 102 @ 0820 Normal [facility] Protein mass conc HNO ID: [id number] Author: Zayda Tijerina Service: Obstetrics Author Type: Resident Type: Progress Notes Filed: 03/19/2019 1:39 PM Note Text: Pt without complaints. BP 121/84 Pulse 99 Temp 36.9 ?C (98.4 ?F) (Oral) Resp 18 Ht 152.4 cm (5') Wt 77.1 kg (170 lb) LMP 06/02/2018 SpO2 98% BMI 33.20 kg/m? FHT: 130/mod/+accels/neg decels Romney: q1-3 mins Cat I FHT Active Hospital Problems Diagnosis Date Noted - 40 weeks gestation of 03/19/2019 - Encounter for induction of labor 03/19/2019 IOL for GDMA1 GBS neg Pit per protocol Epi prn AROM clear @ 1120 EFW - US @ 38 weeks 7.5 lbs Denies PPBC - Gestational diabetes mellitus (GDM) affecting second 03/19/2019 GDMA1 Most recent BG 79 FBS 81 @ 0717 BS on arrival 102 @ 0820 [facility] Protein mass conc HNO ID: [id number] Author: Lula JordanResKaroline Lang Service: Obstetrics Author Type: Resident Type: Progress Notes Filed: 03/19/2019 11:27 AM Note Text: OBSTETRICS INTRAPARTUM PROGRESS NOTE SERVICE DATE: March 19, 2019 SERVICE TIME: 11:24 AM Subjective Patient with no complaints. Objective Temp Min/Max Last 12 Hrs Pre Delivery: Temp Min: 36.9 ?C (98.4 ?F) Min taken time: 03/19/19 1122 Max: 36.9 ?C (98.4 ?F) Max taken time: 03/19/19 1122 Last Pulse/Resp/O2/Temp: Pulse Resp O2 Sat Temp 113 18 98 % 36.9 ?C (98.4 ?F) BP Trend (last 4 values) 03/19/19 0842 BP: 113/76 Pain Score Trend (last 4 values) 03/19/19 1010 03/19/19 1040 03/19/19 1108 03/19/19 1122 Pain Level: 0 0 0 0 PHYSICAL EXAM: General: WN, NAD, comfortable Abdomen: soft, nontender, no masses Cervical Exam: 4/80/-2 Cervical Exam Trend (last 4 values) 03/19/19 0843 03/19/19 112 Dilation: 3 4 Effacement (%): 70 80 Station: -3 -2 Membranes: Membrane Status: Artificial Rupture Date: 03/19/19 Rupture Time: 112 Amniotic Fluid Color: Clear Amniotic Fluid Amount: Small Total ROM Time: 1m Additional Findings: AROM performed during this exam. Head well applied to cervix. heart tones reassuring before and after procedure. Monitorin/mod/+accels/no decels Labs: Diagnostic tests reviewed for today's visit: Most recent labs Assessment/Plan 29 year old [id number]:[id number]. Admitted for induction of labor for GDMA1. Active Hospital Problems Diagnosis Date Noted - 40 weeks gestation of 03/19/2019 - Encounter for induction of labor 03/19/2019 Overview Note: IOL for GDMA1 GBS neg Pit per protocol Epi prn AROM clear @ 1120 EFW - US @ 38 weeks 7.5 lbs Denies PPBC - Gestational diabetes mellitus (GDM) affecting second 03/19/2019 Overview Note: GDMA1 FBS 81 @ 0717 BS on arrival 102 @ 0820 SIGNATURE: Lula Lang MD PATIENT NAME: Lore Gardner DATE: March 19, 2019 TIME: 11:24 AM PAGER/CONTACT #: [phone] Normal [facility] Type and Screenon 03-19-2019 ABO group Nom (Bld) A Normal [facility] Comment on above: Performed By: #### T &S #### [place] [id number] Comment See Below Normal [facility] Comment on above: Result Comment: Scre en &/or Xmatch expires in 3 days at 12 midnight. Redraw patient at that time. Performed By: #### T &S #### [facility] [address] [place], [place] [address] RH Type Positive Normal [facility] Comment on above: Performed By: #### T &S #### [facility] [address] [place] [id number] Otheron 06-28-2012 CONVERTED CLINICAL HISTORY CLINICAL INFORMATION [facility] CONVERTED ELECTRONIC SIGNATURE CELIA DE LA CRUZ M.D. (Electronic signature on file) Final Signed Out: 06/28/2012 15:51 [facility] CONVERTED FINAL DIAGNOSIS DIAGNOSIS FLUID, RIGHT GROIN MASS - NO MALIGNANT CELLS IDENTIFIED. DEGENERATING INFLAMMATORY CELLS. [facility] CONVERTED GROSS DESCRIPTION SPECIMEN: A) OTH, OTHER, NOT PREVIOUSLY DEFINED, CYTOLOGY Fluid from right groin mass Description: Materials Prepared & Examined: Other: ............. 10cc, light brown, # of Smear slides: ......... 2 opaque, somewhat mucoid # of Slides: ................. 2 [facility] CONVERTED ORDERING PROVIDER Ordering Provider: TERRI WOODS [facility] CONVERTED PROCEDURE PROCEDURE: [facility] Vital Signs Date Time Vital Sign Value Performing Clinician Danette hidalgo 01-09-2024 10:17040 Body height 149.86 cm MANAGED CARE MANAGER-Terry Darden MANAGED CARE MANAGER Work Phone: [facility] 01-09-2024 10:17040 Body mass index (BMI) [Ratio] 32 kg/m2 MANAGED CARE MANAGER-Terry Darden MANAGED CARE MANAGER Work Phone: [facility] 01-09-2024 10:17040 Body weight 71.89 kg MANAGED CARE MANAGER-Terry Darden MANAGED CARE MANAGER Work Phone: [facility] 01-09-2024 10:17040 Diastolic blood pressure 84 mm[Hg] LISA Darden MANAGED CARE MANAGER Work Phone: [facility] 01-09-2024 10:17-7770 Systolic blood pressure 118 mm[Hg] MANAGED CARE MANAGER-C Sandra Darden MANAGED CARE MANAGER Work Phone: [facility] Encounters Encounter Date Encounter Type Care Provider Facility Start: 03-25-2025 End: 03-25-2025 ambulatory Patience Licona MD Work Phone: [facility] Work Phone: Start: 03-25-2025 End: 03-25-[address] Javad Sotelo DO -Laboratory Work Phone: Start: 03-25-2025 End: 03-25-2025 ambulatory Chalon Monae Facility:[facility] Start: 01-27-2025 ambulatory Terra Forbes cility:[facility] Start: 12-25-2024 End: 12-25-2024 ambulatory Patience Licona MD Work Phone: [facility] Work Phone: Start: 12-25-2024 End: 12-25-[address] Javad Sotelo DO -Laboratory Work Phone: Start: 12-25-2024 End: 12-25-2024 ambulatory Chalon Monae Facility:[facility] Start: 08-29-2024 End: 08-29-2024 ambulatory Zaydaher Michael Aaronl Facility:[facility] Start: 08-28-2024 End: 08-28-2024 ambulatory Chalon Monae Facility:[facility] Start: 05-29-2024 End: 05-29-2024 ambulatory Chalon Monae Facility:[facility] Start: 05-23-2024 End: 05-23-2024 ambulatory Chalon Monae Facility:[facility] Start: 02-15-2024 End: 02-15-2024 ambulatory MANAGED CARE MANAGER-C Sandra Darden MANAGED CARE MANAGER Work Phone: [facility] Work Phone: Start: 02-15-2024 End: 02-15-2024 Patient encounter procedure MANAGED CARE MANAGER-C Sandra Darden MANAGED CARE MANAGER Work Phone: [facility], [place] Work Phone: Start: 01-09-2024 End: 01-09-2024 ambulatory MANAGED CARE MANAGER-C Sandra Darden MANAGED CARE MANAGER Work Phone: [facility] Work Phone: Start: 01-09-2024 End: 01-09-2024 Patient encounter procedure MANAGED CARE MANAGER-Terry Darden MANAGED CARE MANAGER Work Phone: [facility], [place] Work Phone: Start: 01-09-2024 End: 01-09-2024 Patient encounter procedure MANAGED CARE MANAGER-C Sandra Darden MANAGED CARE MANAGER Work Phone: [facility] Work Phone: Start: 06-28-2012 End: 06-28-2012 Patient encounter procedure Terri Woods [facility] Start: 06-28-2012 Results Only Terri Woods [facility] Procedures Date Procedure Procedure Detail Performing Clinician Start: 03-19-2019 Antibody screen Comment on above: Performed By: #### T &S #### [place] [id number] Start: 06-28-2012 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 Terri Woods Payers Date Payer Category Payer Self-pay [id number] 2024 Unknown [id number] 2011 Private Health Insurance [employer] A ETNA CHOICE POS II [id number] 2011-2018 POS [id number] 2011 Unknown [employer]UE CARD PPO [id number] 2011-2018 PPO [id number] Unknown [id number] 62 Unknown [id number] 62 Unknown [id number] 62 Unknown [id number] 62 Unknown [id number] 62 Unknown [id number] 62 Unknown [id number] 62 Social History Date Type Detail Facility Tobacco smoking stat [facility] Unknown if ever smoked [facility] Sex Assigned At Not on file [facility] Start: 01-09-2024 [facility] Start: 1990 Sex Assigned At Female [facility] Start: 01-09-2024 [facility] Start: 01-06-2025 Sex Female (finding) [facility] Clinical Note 01-09-2024 Note Date & Type Note Facility 01-09-2024 Note [facility] Pap Smear Specimen Adequacy January 09, 2024 11:41am Comment . Satisfactory for evaluation. Endocervical and/or squamous metaplasticcells (endocervical component) are present. Comment on above: Satisfactory for rehana luation. Endocervical and/or squamous metaplasticcells (endocervical component) are present. Clinical Note 01-09-2024 Note Date & Type Note Facility 01-09-2024 Note [facility] Pap Smear Specimen Adequacy January 09, 2024 11:41am Comment . Satisfactory for evaluation. Endocervical and/or squamous metaplasticcells (endocervical component) are present. Comment on above: Satisfactory for rehana luation. Endocervical and/or squamous metaplasticcells (endocervical component) are present. Evaluation note Note Date & Type Note Facility Evaluation note Diagnosis Onset Date Hirsutism acute Hyperthyroidism acute Oligomenorrhea acute Encounter for routine gyneco logical examination noneactive [facility] Work Phone: Evaluation note Note Date & Type Note Facility Evaluation note No assessment information availa ble [facility] Work Phone: Reason for referral (narrative) Note Date & Type Note Facility Reason for referral (narrative) No reason for referral information available [facility] Work Phone: Summary Purpose Family History No Family History Records Found Relationship Condition Age at Onset Recorded Date/T kiana mother Malignant neoplasm Unknown father Malignant neoplasm Unknown aunt Malignant neoplasm of breast Unknown Advance Directives No Advanced Directives Records FoundDocuments on File Type Date Recorded Patient Rn Immunology Expl anation Advance Directive(s) 03/19/2019 10:55 AM Hospital Course Note HNO ID: [id number] Author: Parish Duckworth Service: Obstetrics Author Type: Physician Type: Discharge Summary Filed: 03/22/2019 10:18 AM Note Text: DISCHARGE SUMMARY OBSTETRICS PATIENT NAME: Lore Gardner ADMISSION DATE: 03/19/2019 DISCHARGE DATE: 03/21/2019 Attending Physician: Namrata Kumar Code Status: Not on file Reason for Hospitalization: Intrauterine . Principal Problem: Encounter for induction of labor Active Problems: 40 weeks gestation of Gestational diabetes mellitus (GDM) affecting second Resolved Problems: * No resolved hospital problems. * COMPLICATIONS: None PROCEDURES/SURGERY DURING HOSPITALIZATION: Vaginal Delivery Hospital Course: No notes on file Consulting Teams During Hospitalization: None Patient Condition @ Discharge: Good Discharge Disposition: Home/Self Care PERTINENT FINDINGS: Final hemoglobin: Recent Labs 03/19/19 0855 HB 10.8* Final hematocrit: Recent Labs 03/19/19 0855 HCT 33.6* Information Provided to Patient: (more content not included)... 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 Reason for Visit Hirsutism Hyperthyroidism Oligomenorrhea Encounter for routine gynecological examination Additional Source Comments INFORMATION SOURCE (unrecogn ized section and content) DATE CREATED AUTHOR 04/02/2019 [facility] DATE CREATED AUTHOR AUTHOR'S ORGANIZ ATION 04/05/2019 [facility] DATE CREATED AUTHOR AUTHOR'S ORGANIZ ATION 03/30/2025 [facility] Source Comments (unrecognize d section and content) In the event this informatio n is protected by the Federal Confidentiality of Alcohol and Drug Abuse Patient Records regulations: The Federal rules restrict any use of the information to criminally investigate or prosecute any alcohol or drug abuse patient.[facility] Care Teams (unrecognized sec tion and content) Team Status: Active Member Role Status Dates No Primary Care Physician Primary Care Provider Active Team Status: Inactive Member Role Status Dates Sandra Darden MANAGED CARE MANAGER, MANAGED CARE MANAGER-C Attending Provider Active Team Status: Inactive Member Role Status Dates No Primary Care Physician Primary Care Provider Active Sandra Darden MANAGED CARE MANAGER, MANAGED CARE MANAGER-C Attending Provider, Referring Provider Active Team Status: Active Member Role Status Black Licona MD Primary Care Provider Active Team Status: Inactive Member Role Status Black Licona MD Primary Care Provide r, Attending Provider, Referring Provider Active Team Status: Inactive Member Role Status Black Licona MD Primary Care Provider Active St art: December 25, 2024 End: December 25, 2024 Dr. Javad Sotelo DO Attending Provider Active Start: December 25, 2024 End: December 25, 2024 Dr. Javad Sotelo DO Referring Provider Active Start: December 25, 2024 End: December 25, 2024 Team Status: Inactive Member Role Status Black Licona MD Primary Care Provider Active St art: March 25, 2025 End: March 25, 2025 Dr. Javad Sotelo DO Attending Provider Active Start: March 25, 2025 End: March 25, 2025 Dr. Javad Sotelo DO Referring Provider Active Start: March 25, 2025 End: March 25, 2025 Goals (unrecognized section and content) Goals may be documented in a n alternate sectionGoals may be documented in an alternate sectionGoals may be documented in an alternate sectionGoals may be documented in an alternate section FOR RECORDS PERTAINING TO PATIENTS WHO ARE OR HAVE BEEN ENROLLED IN A CHEMICAL DEPENDENCY/SUBSTANCEABUSE PROGRAM, SOME INFORMATION MAY BE OMITTED. This clinical summary was aggregated from multiple sources. Caution should be exercised in using it in the provision of clinical care. This summary normalizes information from multiple sources, and as a consequence, information in this document may materially change the coding, format and clinical context of patient data. In addition, data may be omitted in some cases. CLINICAL DECISIONS SHOULD BE BASED ON THE PRIMARY CLINICAL RECORDS. [facility] [employer] [facility]. provides no warranty or guarantee of the accuracy or completeness of information in this document.
== END | disposition home or self-care (01) ==
LOC: LAB 10:15
PROVIDERS: PCP Family Medicine
DX: E05.20 Thyrotoxicosis with toxic multinodular goiter without thyrotoxic crisis or storm (principal)
CPT/HCPCS: 36415; 80053; 84439; 84443; 84481